=== PATIENT | female | born 1965 | race Caucasian/White ===

== ENCOUNTER → 2017-07-14 | Outpatient (CLI) | payer OTHER ==
[2017-07-14 08:48] LABS: ALT 41 U/L (9-52); AST 40 U/L (14-36); Cholesterol 230 mg/dL (<200); HDL Cholesterol 56 mg/dL (40-60); LDL Cholesterol,Calculated 123 mg/dL (0-99); Triglycerides 256 mg/dL (<150)
== END | disposition home or self-care (01) ==
LOC: LABWHC1 07:45
PROVIDERS: ATTEND Internal Medicine Cardiovascular Disease
DX: E78.2 Mixed hyperlipidemia (principal)
CPT/HCPCS: 36415; 80061; 84450; 84460

== ENCOUNTER → 2018-03-20 | Outpatient (CLI) | payer OTHER ==
--- NOTE | 2018-03-20 16:19 | MR ---
EXAMINATION TYPE: MR knee RT wo con DATE OF EXAM: 03/20/2018 COMPARISON: None HISTORY: Pain in right knee TECHNIQUE: Multiplanar, multisequence imaging of the right knee is performed without IV contrast. FINDINGS: MEDIAL MENISCUS: There is increased signal within the posterior horn medial meniscus. This may commun icate with the articular surface. Horizontal tear posterior horn considered. This may be complex with a oblique component in the anterior portion. The anterior horn medial meniscus appears intact. The m eniscus may be somewhat laterally displaced bulging out of the joint space. LATERAL MENISCUS: Anterior and posterior horns are intact without tear. CRUCIATE LIGAMENTS: Anterior cruciate ligament is not identified. Chronic tear is likely present. Pos terior cruciate ligament is. COLLATERAL LIGAMENTS: The medial collateral ligament and lateral collateral ligament complex are inta ct and unremarkable. EXTENSOR MECHANISM: Visualized quadriceps and patellar tendons are intact. EFFUSION: No significant suprapatellar joint effusion. POPLITEAL CYST: There is a 2.1 x 2.3 cm cyst posterior to the medial femoral condyle. TRICOMPARTMENT SPACES: There is narrowing of the medial lateral compartment joint spaces. Articular c artilage may serve these locations. There is loss of the articular cartilage from the posterior stewart la with some subchondral cyst formation. CARTILAGE: There is loss of the cartilage from the posterior patella. There is thinning of the cartil age at the anterior femur. There is mild thinning of the lateral compartment articular cartilage. The medial compartment articular cartilage appears intact. BONE MARROW SIGNAL: No focal abnormal marrow signal is appreciated. OTHER: No additional significant abnormality is appreciated. IMPRESSION: 1. Complex tear posterior horn medial meniscus with horizontal and the components. 2. Chronic tear of the anterior cruciate ligament. 3. Complex popliteal cyst posterior to the medial femoral condyle. 4. Degenerative change the articular cartilage discussed above. This is greatest along the posterior patella.
== END ==
LOC: RADMRIMAIN 10:59
PROVIDERS: ATTEND Orthopaedic Surgery
DX: S83.241A Other tear of medial meniscus, current injury, right knee, initial encounter (principal); S83.511A Sprain of anterior cruciate ligament of right knee, initial encounter; M71.21 Synovial cyst of popliteal space [Baker], right knee; M17.11 Unilateral primary osteoarthritis, right knee

== ENCOUNTER → 2018-03-28 | Outpatient (CLI) | payer OTHER ==
[2018-03-28 10:27] LABS: Basophils % (A) 1 %; Eosinophils # (A) 0.1 k/uL (0-0.7); Eosinophils % (A) 2 %; HCT 40.9 % (34.0-46.0); HGB 13.6 gm/dL (11.4-16.0); Lymphocytes # (A) 2.3 k/uL (1.0-4.8); Lymphocytes % (A) 30 %; MCH 30.2 pg (25.0-35.0); MCHC 33.2 g/dL (31.0-37.0); MCV 90.8 fL (80.0-100.0); Mean Platelet Volume 6.7; Monocytes # (A) 0.6 k/uL (0-1.0); Monocytes % (A) 8 %; Neutrophils # (A) 4.7 k/uL (1.3-7.7); Neutrophils % (A) 59 %; Platelet Count 378 k/uL (150-450); RBC 4.51 m/uL (3.80-5.40); RDW 13.7 % (11.5-15.5); WBC 7.9 k/uL (3.8-10.6)
[2018-03-28 10:46] LABS: Potassium 4.1 mmol/L (3.5-5.1)
== END | disposition home or self-care (01) ==
LOC: LABPAT 09:43
PROVIDERS: ATTEND Orthopaedic Surgery
DX: Z01.812 Encounter for preprocedural laboratory examination (principal); M23.91 Unspecified internal derangement of right knee
CPT/HCPCS: 36415; 80051; 85025

== ENCOUNTER → 2018-04-06 | Day surgery (SDC) | payer OTHER ==
[2018-04-03 15:56] VITALS: BMI 42.7
--- NOTE | 2018-04-05 10:42 | HP ---
HISTORY AND PHYSICAL CHIEF COMPLAINT: Right knee pain. 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 She notes intermittent giving way and locking. She has medial pain with prolonged weightbearing activities. She has tried medications and injection with only partial temporary relief. She had previous surgery 27 years ago. PAST MEDICAL HISTORY: Negative. PAST SURGICAL HISTORY: Significant for tubal ligation, section, hysterectomy, and previous right knee surgery. CURRENT MEDICATIONS: 1. Nelsy. 2. Aspirin. She has allergies to AVELOX. FAMILY HISTORY: Significant for cancer, thrombocytopenia, and Crohn's. SOCIAL HISTORY: Negative for current tobacco or alcohol use. REVIEW OF SYSTEMS: A 16-point review of systems otherwise reviewed and is noncontributory. PHYSICAL EXAMINATION: On examination, the patient is approximately 5 foot 2, 230 pounds of endomorphic habitus. HEENT exam is nonfocal. Neck is supple. She has painless passive motion of the right hip. Straight leg raise is negative. Active motion right knee -6 to 120 degrees of flexion. She is tender about the medial and lateral joint line. She has mild effusion. Collaterals are stable, Yeimi is 1+, Luis Eduardo's elicits medial pain. Her distal neurovascular appears intact in the right lower extremity. MRI report right knee 03/20/2018 shows a posterior medial meniscal tear along with a chronic ACL tear and tricompartmental degenerative changes. IMPRESSION: 1. Right knee internal derangement with symptomatic medial meniscal tear. 2. Right knee chronic ACL rupture. 3. Increased body mass index. 4. Right knee tricompartmental osteoarthrosis. RECOMMENDATIONS: I talked to the patient at length regarding her condition and treatment options. At this point, she is having persistent pain and mechanical symptoms despite conservative measures. After a thorough discussion, she opts to proceed with surgery. We will plan to proceed with arthroscopic evaluation with possible partial medial meniscectomy. Risks and benefits were discussed at length in layman's terms. We will likely perform that as an outpatient procedure. MMODL / IJN: [id number] /
[~2018-04-06] MED LIST: DEXAMETHASONE SOD PHOSPHATE 10 MG/ML 1 ML VIAL IV ONE; EPINEPHrine (PF) 1 ML in SODIUM CHLORIDE 0.9% IRRIGATIO 3,000 ML IRRIGATION ONE; GLYCOPYRROLATE 0.2 MG/ML 2 ML VIAL ONE; HYDROcodone/APAP 5-325MG 1 EACH TAB PO ONE; KETOROLAC 30 MG/ML 1 ML VIAL ONE; LACTATED RINGERS 1,000 ML IV SCH; LIDOCAINE 1% 20 ML VIAL (10MG/ML) FOR IV START INTRADERMA PRN; LIDOCAINE 1% 20 ML VIAL (10MG/ML) FOR IV START SQ ONE; LIDOCAINE 1% INJ 10MG/ML (20 ML MDV) ONE; MIDAZOLAM 2 MG/2 ML VIAL IV PRN; MIDAZOLAM 2 MG/2 ML VIAL ONE; ONDANSETRON 4 MG/2 ML VIAL IVP ONE; PROPOFOL 10 MG/ML 20 ML VIAL IV ONE; SUCCINYLCHOLINE CHLORIDE 100 MG/5 ML SYR IV ONE; ceFAZolin IN SWFI 2 GM/20 ML SYRINGE IVP ONE; ePHEDrine SULFATE/0.9% NACL/PF 50 MG/5 ML SYRINGE IV ONE; fentaNYL (PF) 50 MCG/ML 2 ML AMP ONE
--- NOTE | 2018-04-06 10:30 | P.OP ---
Date of Procedure: 04/06/18 Preoperative Diagnosis: Right knee internal derangement with/chronic ACL rupture Postoperative Diagnosis: Same in addition to a complex posterior medial meniscal tear/grade 3 chondral injury distal medial femoral condyle medial patella facet/large patellofemoral plica Procedure(s) Performed: Right knee arthroscopic partial medial meniscectomy/medial femoral condyle/ patellar chondroplasty/plica resection/ACL debridement Anesthesia: CHERIEA Surgeon: Kaden Cummins Estimated Blood Loss (ml): 10 Pathology: none sent Condition: stable Disposition: PACU Indications for Procedure: The patient's a 52-year-old female who presents with progressive right knee pain and mechanical symptoms despite conservative measures. A discussion of the risks and benefits of operative intervention versus continued conservative measures was made with patient. She opted to proceed. Operative risks to include infection, neurovascular injury, development of blood clots, possible incomplete resolution of symptoms, possible worsening symptoms and need for subsequent procedures was discussed. Informed consent was obtained. Operative Findings: As below Description of Procedure: The patient was brought to the operating room, and after induction of general anesthesia examined the right knee. Collaterals were stable, Yeimi was positive, and posterior drawer was negative. The right lower extremity was prepped and draped in a normal fashion. A superior lateral portal was made through a 3 mm skin incision superior and lateral to the patella. This was used for outflow. A lateral portal was made through a 5 mm vertical skin incision lateral to the patella tendon above the joint line. Diagnostic arthroscopy was performed. On inspection of the medial compartment, a complex oblique tear involving the posterior horn of the medial meniscus was noted in the white-red junction.. This was debrided back to stable base with straight baskets and a motorized shaver. A grade 3 chondral defect was noted involving the distal medial portion of the medial femoral condyle the loose chondral fragment. This was debrided back to stable base with a motorized shaver. Grade 2-3 chondral changes were noted diffusely in the medial compartment. On inspection of the notch, the anterior cruciate ligament appeared to be ruptured and impinging on the lateral compartment. This was debrided with a motorized shaver. The posterior cruciate ligament appeared to be intact. On inspection of the lateral compartment, mild degenerative changes were noted diffusely. On inspection of the patellofemoral articulation grade 3 chondral changes were noted involving the medial patella facet was a loose chondral fragment. This was debrided back to stable base with a motorized shaver. There appeared to be a large medial patellofemoral plica that impinged on the medial femoral condyle throughout the arc of motion. This was debrided with motorized shaver. The gutters were clear debris. The knee was then thoroughly irrigated. The portals were closed with Steri-Strips. A sterile dressing was applied in addition to a compression stocking. The patient was awoken from general anesthesia and transferred to recovery room in good condition. Blood loss was estimated at 10 mL. No complications were incurred.
[2018-04-06 10:43] VITALS: TEMP 98.5
[2018-04-06] MEDS: HYDROmorphone 0.5 MG/0.5 ML SYRINGE IVP PRN ×2 (10:44→11:02)
[2018-04-06 11:02] VITALS: RESP 16
[2018-04-06 11:17] VITALS: BP 126/87; PULSE 92
== END | disposition home or self-care (01) ==
LOC: OR 07:36
PROVIDERS: ATTEND Orthopaedic Surgery
DX: S83.231A Complex tear of medial meniscus, current injury, right knee, initial encounter (principal); X58.XXXA Exposure to other specified factors, initial encounter; M67.51 Plica syndrome, right knee; M17.11 Unilateral primary osteoarthritis, right knee; M23.8X1 Other internal derangements of right knee; E66.01 Morbid (severe) obesity due to excess calories; Z68.41 Body mass index [BMI] 40.0-44.9, adult; Z79.82 Long term (current) use of aspirin; Z79.899 Other long term (current) drug therapy; Z88.1 Allergy status to other antibiotic agents; Z98.51 Tubal ligation status; Z90.710 Acquired absence of both cervix and uterus
CPT/HCPCS: 29881; J2250; J1100; J2405; J0171; J2001; J3010; J1885; J0330; J2704; J1170; J0690

== ENCOUNTER → 2020-07-23 | Outpatient (CLI) | payer OTHER, BC ==
--- NOTE | 2020-07-29 11:12 | MM ---
Reason for exam: screening (asymptomatic). Last mammogram was performed 5 years and 7 months ago. History: Patient is postmenopausal. Physical Findings: A clinical breast exam by your physician is recommended on an annual basis and results should be correlated with mammographic findings. MG 3D Screening Mammo W/Cad Bilateral CC, MLO, and XCCL view(s) were taken. Prior study comparison: January 06, 2015, bilateral MG screening mammo w CAD. There are scattered fibroglandular densities. There is chronic nodularity in the left breast. Multiple benign oil cyst calcifications. No significant changes when compared with prior studies. ASSESSMENT: Negative, BI-RAD 1 RECOMMENDATION: Routine screening mammogram of both breasts in 1 year.
== END | disposition home or self-care (01) ==
LOC: RADMAMWWP 07:48
PROVIDERS: ATTEND Family Medicine
DX: Z12.31 Encounter for screening mammogram for malignant neoplasm of breast (principal); Z78.0 Asymptomatic menopausal state
CPT/HCPCS: 77063; 77067

== ENCOUNTER → 2021-02-03 | Outpatient (CLI) | payer OTHER ==
--- NOTE | 2021-02-03 19:40 | US ---
EXAMINATION TYPE: US thyroid st tissue head/neck DATE OF EXAM: 02/03/2021 COMPARISON: NONE CLINICAL HISTORY: 55-year-old female R59.9 ENLARGED LYMPH NODES. TECHNIQUE: Multiple sonographic images of the thyroid gland are obtained. GLAND SIZE: Right Lobe: 5.9 x 1.9 x 2.7 cm Overall Parenchyma: heterogenous Left Lobe: 7.2 x 2.3 x 2.7 cm Overall Parenchyma: heterogeneous Isthmus Thickness: 0.8 cm NODULES RIGHT: # of nodules measured on right: 0 LEFT: # of nodules measured on left: 0 ISTHMUS: # of nodules measured in the isthmus: 0 Can Piler notes: Enlarged heterogeneous thyroid. Bilateral neck scanned, no evidence of lymphadenopathy. Scanned back of patients neck area of pain: appears wnl IMPRESSION: 1. Thyromegaly especially the left lobe which measures up to 7.2 cm. Diffuse glandular heterogeneity. Correlate for diffuse thyroiditis or goiter. 2. No discrete nodules. 3. Targeted scanning along the left posterior neck corresponding to the site of pain shows no discret e sonographic abnormality.
== END | disposition home or self-care (01) ==
LOC: RADUSWWP 15:23
PROVIDERS: ATTEND Family Medicine
DX: E04.9 Nontoxic goiter, unspecified (principal)
CPT/HCPCS: 76536

== ENCOUNTER → 2021-05-13 | Outpatient (CLI) | payer OTHER ==
--- NOTE | 2021-05-13 13:08 | US ---
EXAMINATION TYPE: US abdomen complete DATE OF EXAM: 05/13/2021 COMPARISON: None CLINICAL HISTORY: 55-year-old female R10.12 LEFT UPPER QUADRANT PAIN. TECHNIQUE: Multiple sonographic images of the abdomen are obtained. FINDINGS: EXAM MEASUREMENTS: Liver Length: 18.7 cm Gallbladder Wall: 0.22 cm CBD: 0.54 cm Spleen: 9.1 cm Right Kidney: 12.5 x 6.4 x 5.0 cm Left Kidney: 11.9 x 4.4 x 5.0 cm Business Communications Instructor notes: Limited due to gas. Pancreas: Appears hyperechoic, limited. Liver: Mildly enlarged with increased echogenicity. Mildly complex probable cyst seen within the left lobe: 1.1 x 1.4 x 1.2 cm. Mildly complex probable cyst seen within the right lobe: 3.0 x 3.2 x 2.4 cm. Gallbladder: Appears anechoic, fold noted within the neck. Evidence for sonographic Doan's sign: No CBD: Upper limits of normal Spleen: Appears wnl Right Kidney: No hydronephrosis or masses seen Left Kidney: Some fullness of the left renal collecting system. Upper IVC: Appears wnl Abd Aorta: Appears wnl IMPRESSION: 1. Mild hepatomegaly (18.7 cm) with mild to moderate hepatic steatosis. A couple lesions measuring 3. 2 and 1.4 cm, likely mildly complex cysts that can be reassessed in 3-6 months. 2. No gallstones or biliary ductal dilatation. 3. Some fullness of the left renal collecting system may be transient. If there is left-sided renal c olic, hematuria, or concern for early obstructive uropathy, further contrast CT evaluation can be con sidered.
== END | disposition home or self-care (01) ==
LOC: RADUSWWP 10:11
PROVIDERS: ATTEND Family Medicine
DX: R16.0 Hepatomegaly, not elsewhere classified (principal); K76.0 Fatty (change of) liver, not elsewhere classified; K76.89 Other specified diseases of liver
CPT/HCPCS: 76700

== ENCOUNTER 2021-06-20 07:36 | Emergency (ER) | payer OTHER ==
[2021-06-20] MEDS ORDERED: KETOROLAC 15 MG/ML 1 ML VIAL IVP STA (08:34)
--- NOTE | 2021-06-20 08:37 | ED ---
General Adult HPI - General Chief complaint: Extremity Injury, Upper Stated complaint: Shoulder pain Time Seen by Provider: 06/20/21 08:25 Source: patient, RN notes reviewed, old records reviewed Limitations: no limitations - History of Present Illness Initial comments: Patient is a 55-year-old female with past medical history remarkable for ALLERGIES, presents for Covid symptoms for the 8 days. Was vaccinated. Did not receive a monoclonal antibodies.Presents primarily over concern for left shoulder pain after a fall last week. Patient states she believes she had a syncopal episode while she was in the shower on , which is 3 days ago. Is currently Monday. Is having continued pain over the posterior aspect of her left shoulder. His normal range of motion. Pain is worse with movement. No sensory deficits or weakness. Denies any chest pain or shortness breath, abdominal pain, nausea, vomiting. Denies any lower extremity edema. His no history of blood clots. States she believes her Covid is improving. Denies any difficulty breathing. He is uncertain concern for injury to her left shoulder as well as the syncopal episode. No cardiac history.Not on blood thinners. Denies any further episodes of syncope or symptoms related to presyncope. - Related Data Previous Rx's Medication Instructions Recorded Hydrocodone/Acetaminophen [[place] 1 each PO Q6HR PRN #21 tab 04/06/18 5-325] Lidocaine 5% Patch [Lidoderm 5% 1 patch TOPICAL DAILY PRN 7 Days 06/20/21 Patch] #7 patch Methocarbamol [Robaxin-750] 750 mg PO BID PRN 7 Days #14 tablet 06/20/21 Allergies Allergy/AdvReac Type Severity Reaction Status Date / Time No Known Allergies Allergy Verified 06/20/21 07:46 Review of Systems ROS Statement: Those systems with pertinent positive or pertinent negative responses have been documented in the HPI. Review of Systems: CONST: Denies fever EYES: Denies blurry vision ENT: Denies nasal congestion C/V: Denies Chest pain RESP: Denies shortness of breath GI: Denies abdominal pain : Denies dysuria SKIN: Denies rash. MSK: Endorses left shoulder pain NEURO: Denies headache ROS Other: All systems not noted in ROS Statement are negative. Past Medical History Additional Past Medical History / Comment(s): environmental allergies History of Any Multi-Drug Resistant Organisms: None Reported Past Surgical History: Section, Hysterectomy, Orthopedic Surgery, Tubal Ligation Additional Past Surgical History / Comment(s): SEPTOPLASTY. RT KNEE SCOPE Past Anesthesia/Blood Transfusion Reactions: Previous Problems w/ Anesthesia Additional Past Anesthesia/Blood Transfusion Reaction / Comment(s): WOKE UP TWICE DURING HYSTERECTOMY Past Psychological History: No Psychological Hx Reported Smoking Status: Never smoker Past Alcohol Use History: Rare Past Drug Use History: None Reported - Past Family History Father Family Medical History: Cancer General Exam - General Exam Comments Initial Comments: General: Appears in no acute distress. HEAD: Normal with no signs of head trauma. EYES: PERRLA, EOMI, conjunctiva normal, no discharge. ENT: Hearing grossly intact, normal oropharynx. RESPIRATORY: Clear breath sounds bilaterally. No wheezes, rales, or rhonchi. C/V: Regular rate and rhythm. S1 and S2 auscultated, no edema, peripheral pulses 2+ and intact throughout ABD: Abd is soft, nontender, nondistended EXT: Tenderness to palpation of the posterior aspect of the left shoulder with no obvious bony abnormality. No obvious injury. Full range of motion. SKIN: No rashes or lesions observed on exposed skin. NEURO: Alert and oriented 4. No focal sensory strength deficits. NIH is 0. GCS is 15. Limitations: no limitations Course Vital Signs 06/20/21 06/20/21 06/20/21 07:43 09:00 10:19 Temperature 98.1 F 98.4 F Pulse Rate 96 79 79 Respiratory 20 18 18 Rate Blood Pressure 163/105 147/101 137/86 O2 Sat by Pulse 97 98 97 Oximetry Medical Decision Making - Medical Decision Making This on the patient's presentation and physical exam, she has an active Covid infection but is outside window for monoclonal antibodies. She appears to be having left shoulder mostly skeletal pain after a question of syncopal episode last week. As she is actively Covid positive, she is at increased risk for blood clots. I did recommend we obtain a cardiac workup in addition to d-dimer further syncope. She was in agreement this plan. We'll also obtain x-rays of left shoulder throughout bony traumatic injury. She'll be given analgesia. Patient was in agreement this plan. EKG showed no signs of acute ischemia. Laboratory studies revealed a undetectable troponin. Remainder the labs are unremarkable. Chest x-ray showed no acute cardiopulmonary process. Shoulder x-ray showed no acute traumatic injury. There is arthritis at the AC joint. Reevaluation come patient's pain is improved. I discussed her negative workup. I believe it is safer to be discharged home with close follow-up. She was in agreement this plan. Vital signs of remained within normal limits stable throughout her stay. No further symptoms of syncopal episodes since . I will provide the patient with a prescription for lidocaine patch, Robaxin. I instructed the patient to follow up with their PCP in the next 3 days. I explained that the patient should return to the emergency department if they experience any worsening symptoms. Strict return precautions were discussed with the patient. The patient expressed understanding of these instructions. I answered all questions that the patient had. The patient was discharged home in good condition with their prescriptions and follow up information. - Lab Data Result diagrams: 06/20/21 08:50 06/20/21 08:50 Lab Results 06/20/21 06/20/21 06/20/21 Range/Units 08:50 08:50 08:50 WBC 6.3 (3.8-10.6) k/uL RBC 5.10 (3.80-5.40) m/uL Hgb 12.5 (11.4-16.0) gm/dL Hct 40.2 (34.0-46.0) % MCV 78.9 L (80.0-100.0) fL MCH 24.5 L (25.0-35.0) pg MCHC 31.1 (31.0-37.0) g/dL RDW 16.9 H (11.5-15.5) % Plt Count 469 H (150-450) k/uL MPV 7.0 Neutrophils % 59 % Lymphocytes % 29 % Monocytes % 7 % Eosinophils % 1 % Basophils % 0 % Neutrophils # 3.8 (1.3-7.7) k/uL Lymphocytes # 1.9 (1.0-4.8) k/uL Monocytes # 0.4 (0-1.0) k/uL Eosinophils # 0.1 (0-0.7) k/uL Basophils # 0.0 (0-0.2) k/uL Anisocytosis Slight Microcytosis Slight PT 10.5 (9.0-12.0) sec INR 1.0 (<1.2) APTT 24.2 (22.0-30.0) sec D-Dimer 0.26 (<0.60) mg/L FEU Sodium 138 (137-145) mmol/L Potassium 4.1 (3.5-5.1) mmol/L Chloride 106 (98-107) mmol/L Carbon Dioxide 22 (22-30) mmol/L Anion Gap 10 mmol/L BUN 14 (7-17) mg/dL Creatinine 0.67 (0.52-1.04) mg/dL Est GFR (CKD-EPI)AfAm >90 (>60 ml/min/1.73 sqM) Est GFR (CKD-EPI)NonAf >90 (>60 ml/min/1.73 sqM) Glucose 122 H (74-99) mg/dL Calcium 9.5 (8.4-10.2) mg/dL Magnesium 1.8 (1.6-2.3) mg/dL Total Bilirubin 0.6 (0.2-1.3) mg/dL AST 32 (14-36) U/L ALT 25 (4-34) U/L Alkaline Phosphatase 87 (38-126) U/L Troponin I (0.000-0.034) ng/mL Total Protein 7.9 (6.3-8.2) g/dL Albumin 4.5 (3.5-5.0) g/dL 06/20/21 Range/Units 08:50 WBC (3.8-10.6) k/uL RBC (3.80-5.40) m/uL Hgb (11.4-16.0) gm/dL Hct (34.0-46.0) % MCV (80.0-100.0) fL MCH (25.0-35.0) pg MCHC (31.0-37.0) g/dL RDW (11.5-15.5) % Plt Count (150-450) k/uL MPV Neutrophils % % Lymphocytes % % Monocytes % % Eosinophils % % Basophils % % Neutrophils # (1.3-7.7) k/uL Lymphocytes # (1.0-4.8) k/uL Monocytes # (0-1.0) k/uL Eosinophils # (0-0.7) k/uL Basophils # (0-0.2) k/uL Anisocytosis Microcytosis PT (9.0-12.0) sec INR (<1.2) APTT (22.0-30.0) sec D-Dimer (<0.60) mg/L FEU Sodium (137-145) mmol/L Potassium (3.5-5.1) mmol/L Chloride (98-107) mmol/L Carbon Dioxide (22-30) mmol/L Anion Gap mmol/L BUN (7-17) mg/dL Creatinine (0.52-1.04) mg/dL Est GFR (CKD-EPI)AfAm (>60 ml/min/1.73 sqM) Est GFR (CKD-EPI)NonAf (>60 ml/min/1.73 sqM) Glucose (74-99) mg/dL Calcium (8.4-10.2) mg/dL Magnesium (1.6-2.3) mg/dL Total Bilirubin (0.2-1.3) mg/dL AST (14-36) U/L ALT (4-34) U/L Alkaline Phosphatase (38-126) U/L Troponin I <0.012 (0.000-0.034) ng/mL Total Protein (6.3-8.2) g/dL Albumin (3.5-5.0) g/dL - EKG Data -: EKG Interpreted by Me EKG Comments: 12-lead Electrocardiogram Interpretation Note EKG was reviewed and interpreted by myself. 12-lead ECG performed at 0841 is interpreted by me as revealing normal sinus rhythm at a rate of 77 beats per minute. Candor is normal. VT interval is 201 ms, QRS duration is 79 ms, QTc is 394 ms.. There were no ST or T wave abnormalities to suggest myocardial ischemia or injury. R wave progression across the precordium was satisfactory. By my interpretation this EKG is non-diagnostic for acute ischemia. Disposition Clinical Impression: Fall, Shoulder pain, Syncope Disposition: HOME SELF-CARE Condition: Good Instructions (If sedation given, give patient instructions): Syncope (ED), Shoulder Pain (ED) Prescriptions: Lidocaine 5% Patch [Lidoderm 5% Patch] 1 patch TOPICAL DAILY PRN 7 Days #7 patch PRN Reason: Pain Methocarbamol [Robaxin-750] 750 mg PO BID PRN 7 Days #14 tablet PRN Reason: Pain Is patient prescribed a controlled substance at d/c from ED?: No Referrals: Ray Mac III, MD [Primary Care Provider] - 1-2 days Time of Disposition: 09:50
[2021-06-20 09:00] VITALS: PULSE 79; RESP 18
[2021-06-20] MEDS ORDERED: LIDOCAINE 5% PATCH TOPICAL SCH (09:00)
[2021-06-20 09:14] LABS: Partial Thromboplastin Time 24.2 sec (22.0-30.0); Prothrombin Time 10.5 sec (9.0-12.0)
--- NOTE | 2021-06-20 09:15 | XR ---
EXAMINATION TYPE: XR chest 2V DATE OF EXAM: 06/20/2021 COMPARISON: NONE HISTORY: Syncope TECHNIQUE: Frontal and lateral views of the chest are obtained. FINDINGS: There is no focal air space opacity, pleural effusion, or pneumothorax seen. The cardiac silhouette size is within normal limits. The osseous structures are intact. There is a moderate to large hiatal hernia IMPRESSION: No acute cardiopulmonary process. Hiatal hernia
--- NOTE | 2021-06-20 09:18 | XR ---
Left shoulder. HISTORY: Pain following trauma. COMPARISON: None. TECHNIQUE: 3 views left shoulder were obtained. There is no fracture, dislocation or focal intraosseous abnormality. There is mild degenerative quinones e of the acromioclavicular joint. Soft tissues are normal without calcification or radiopaque foreign body.. IMPRESSION: 1. No acute trauma. 2. Mild osteoarthritic change at the AC joint.
[2021-06-20 09:19] LABS: ALT 25 U/L (4-34); AST 32 U/L (14-36); African American GFR (CKD) >90 (>60 ml/min/1.73 sqM); Albumin 4.5 g/dL (3.5-5.0); Alkaline Phosphatase 87 U/L (38-126); Anion Gap 10 mmol/L; Anisocytosis Slight; Basophils % (A) 0 %; Blood Urea Nitrogen 14 mg/dL (7-17); Calcium 9.5 mg/dL (8.4-10.2); Carbon Dioxide 22 mmol/L (22-30); Chloride 106 mmol/L (98-107); Eosinophils # (A) 0.1 k/uL (0-0.7); Eosinophils % (A) 1 %; Glucose 122 mg/dL (74-99); HCT 40.2 % (34.0-46.0); HGB 12.5 gm/dL (11.4-16.0); Lymphocytes # (A) 1.9 k/uL (1.0-4.8); Lymphocytes % (A) 29 %; MCH 24.5 pg (25.0-35.0); MCHC 31.1 g/dL (31.0-37.0); MCV 78.9 fL (80.0-100.0); Magnesium 1.8 mg/dL (1.6-2.3); Microcytosis Slight; Monocytes # (A) 0.4 k/uL (0-1.0); Monocytes % (A) 7 %; Neutrophils # (A) 3.8 k/uL (1.3-7.7); Neutrophils % (A) 59 %; Non-African American GFR(CKD) >90 (>60 ml/min/1.73 sqM); Platelet Count 469 k/uL (150-450); Potassium 4.1 mmol/L (3.5-5.1); RDW 16.9 % (11.5-15.5); Sodium 138 mmol/L (137-145); Total Bilirubin 0.6 mg/dL (0.2-1.3); Total Protein 7.9 g/dL (6.3-8.2); WBC 6.3 k/uL (3.8-10.6)
[2021-06-20 10:21] VITALS: BP 137/86; TEMP 98.4
== END 2021-06-20 10:20 | disposition home or self-care (01) ==
LOC: EC 07:36
DX: R55 Syncope and collapse (principal); M25.512 Pain in left shoulder; U07.1 COVID-19; W18.39XA Other fall on same level, initial encounter
CPT/HCPCS: 36415; 93005; 85379; 80053; 83735; 84484; 85025; 85610; 85730; 73030; 71046; 99284; 96374; J1885

== ENCOUNTER → 2021-06-28 | Outpatient (CLI) | payer OTHER ==
--- NOTE | 2021-06-28 17:28 | CT ---
EXAMINATION TYPE: CT abdomen pelvis wo/w con DATE OF EXAM: 06/28/2021 COMPARISON: Ultrasound 05/13/2021 HISTORY: 55-year-old female left-sided abdomen pain, K92.1, R10.12. Pt states she had US, result was renal congestion TECHNIQUE: Contiguous axial scanning of the abdomen and pelvis before and after administration of 100 ml Isovue 300 IV contrast. Delayed images through the kidneys and coronal/sagittal reconstructions performed. CT DLP: 3005.6 mGycm Automated exposure control for dose reduction was used. FINDINGS: Heart normal size without pericardial effusion. Minimal emphysematous change in the lower lungs witho ut pleural effusion. There is a large hiatal hernia involving approximately half of the stomach in the lower chest. Liver mildly enlarged 18.5 cm. Low attenuation suggest mild fatty infiltration. There are 2 hypodense lesions, larger in the periphery of the right liver lobe is slightly heterogeneous measuring 1.7 cm and smaller within the posterior left liver lobe measuring 9 mm, likely a cyst. No biliary ductal dilatation. Portal venous system is patent. Gallbladder, adrenal glands, kidneys, spleen, pancreas within normal limits. No renal calculi or hydronephrosis is seen. The previous left-sided pelvocaliectasis seen on ultrasou nd has resolved. No dilated small bowel, free fluid, or free air. No mesenteric or retroperitoneal lymphadenopathy. No significant stool burden. Oral contrast progressed to the distal sigmoid. There is sigmoid diverti culosis without pericolonic inflammatory change. Bladder urine distended. Numerous pelvic phleboliths. Uterus surgically absent. Both ovaries are visu alized. No abnormal fluid collection in the pelvis or pelvic lymphadenopathy. Moderate multilevel degenerative disc disease throughout the thoracic spine. Hypertrophic facet arthr opathy. Grade 1 anterolisthesis L4-L5 and grade 1 retrolisthesis L2-L3. IMPRESSION: 1. LARGE HIATAL HERNIA WITH APPROXIMATELY HALF OF THE STOMACH LOCATED IN THE LOWER CHEST. 2. MILD HEPATOMEGALY AT 18.5 CM. THERE MAY BE MILD FATTY INFILTRATION OF THE LIVER. 2 HYPODENSE LESIO NS MEASURING 1.7 AND 0.9 CM; THE LARGER ONE IN THE RIGHT LOBE COULD BE MILDLY COMPLICATED WITH DEBRIS . REASSESS AT THE 6 MONTH FOLLOW-UP ULTRASOUND. 3. THE PREVIOUS LEFT-SIDED PELVICALIECTASIS/MILD HYDRONEPHROSIS SEEN ON THE 05/13/2021 ULTRASOUND HAS RESOLVED. NO RENAL CALCULI. 4. SIGMOID DIVERTICULOSIS WITHOUT ACUTE DIVERTICULITIS. 5. COPD WITH MILD EMPHYSEMA IN THE VISUALIZED LOWER LUNGS.
== END | disposition home or self-care (01) ==
LOC: RADCTMAIN 12:16
PROVIDERS: ATTEND Family Medicine
DX: K44.9 Diaphragmatic hernia without obstruction or gangrene (principal); K57.30 Diverticulosis of large intestine without perforation or abscess without bleeding; R16.0 Hepatomegaly, not elsewhere classified; J43.9 Emphysema, unspecified
CPT/HCPCS: 74178; Q9967

== ENCOUNTER → 2021-08-03 | Outpatient (CLI) | payer OTHER ==
--- NOTE | 2021-08-04 07:43 | MM ---
Reason for Exam: Screening (asymptomatic). Last screening mammogram was performed 12 month(s) ago. Patient History: Menarche at age 10. First Full-Term at age 27. Hysterectomy at age 44. Postmenopausal. Patient has history of breast feeding. Risk Values: Honey 5 year model risk: 1.4%. NCI Lifetime model risk: 8.7%. Prior Study Comparison: 03/30/2012 Bilateral Screening Mammogram, [facility]. 01/06/2015 Bilateral Screening Mammogram, [facility]. 07/23/2020 Bilateral Screening Mammogram, [facility]. Tissue Density: There are scattered fibroglandular densities. Findings: Analyzed By CAD. There is no suspicious group of microcalcifications or new suspicious mass in either breast. Stable scattered benign-appearing calcifications bilaterally. Overall Assessment: Benign, BI-RAD 2 Management: Screening Mammogram of both breasts in 1 year. A clinical breast exam by your physician is recommended on an annual basis and results should be correlated with mammographic findings. Electronically signed and approved by: Isaac Swift M.D. Radiologis
== END | disposition home or self-care (01) ==
LOC: RADMAMWWP 07:23
PROVIDERS: ATTEND Family Medicine
DX: Z12.39 Encounter for other screening for malignant neoplasm of breast (principal)
CPT/HCPCS: 77063; 77067

== ENCOUNTER → 2021-08-30 | Outpatient (CLI) | payer OTHER ==
--- NOTE | 2021-08-30 11:13 | FL ---
ESOPHOGRAM. HISTORY: Dysphagia Esophagram was performed per the air contrast technique. The patient swallowed barium and effervesce nt crystals without difficulty or delay. Esophageal peristalsis and motility appear to be within normal limits. There is no evidence for filling defect, mass or diverticulum. Moderately large fixed paraesophageal hiatal hernia noted. Subsequently single contrast cervical esophagram was performed which fails demonstrate evidence for a spiration penetration or mass. IMPRESSION: Moderately large fixed paraesophageal hiatal hernia noted.
== END | disposition home or self-care (01) ==
LOC: RADUSWWP 09:52
PROVIDERS: ATTEND Surgery Plastic and Reconstructive Surgery
DX: K44.9 Diaphragmatic hernia without obstruction or gangrene (principal)
CPT/HCPCS: 74220

== ENCOUNTER → 2021-09-01 | Outpatient (CLI) | payer OTHER ==
--- NOTE | 2021-09-01 09:32 | NM ---
EXAMINATION TYPE: NM hepatobiliary w EF DATE OF EXAM: 09/01/2021 COMPARISON: NONE HISTORY: Pain TECHNIQUE: After the intravenous administration of 4.2 mCi Tc 99m Mebrofenin hepatobiliary scintigrap hy is performed. Immediate images post injection. FINDINGS: There is satisfactory initial accumulation of tracer by the liver. The gallbladder is visualized wit hin 26 minutes. The small bowel activity is noted within 14 minutes. At one hour 8 ounces of oral e nsure plus is given to mimic CCK and gallbladder ejection fraction is calculated at 27 %. IMPRESSION: Diminished gallbladder ejection fraction of 27% may reflect chronic cholecystitis and/or biliary dyskinesia.
== END | disposition home or self-care (01) ==
LOC: RADNMMAIN 06:48
PROVIDERS: ATTEND Surgery Plastic and Reconstructive Surgery
DX: K76.89 Other specified diseases of liver (principal)
CPT/HCPCS: 78226; A9537

== ENCOUNTER 2021-09-13 18:58 | Emergency (ER) | payer OTHER, BC ==
[2021-09-13 19:25] VITALS: BP 148/90; PULSE 108; RESP 16; TEMP 98.2
[2021-09-13] MEDS ORDERED: diazePAM 5 MG TAB PO STA (23:07)
--- NOTE | 2021-09-13 23:10 | ED ---
General Adult HPI - General Chief complaint: Fall Stated complaint: fall, head injury Time Seen by Provider: 09/13/21 22:01 Source: patient, RN notes reviewed Mode of arrival: ambulatory Limitations: no limitations - History of Present Illness Initial comments: 55-year-old female presents to the emergency department for evaluation of injury to head and face status post a slip and fall on a wet floor in her basement around 6 PM. Patient states her scalp is tender to the touch and has noticeable swelling to the left face and eye. She does not take any blood thinning medications. No other injuries. Denies loss of consciousness, dizziness, blurry vision, neck pain, back pain, chest pain, difficulty breathing, abdominal pain, nausea, vomiting, diarrhea, or dysuria. - Related Data Home Medications Medication Instructions Recorded Confirmed Fexofenadine HCl [Nelsy Allergy] 180 mg PO DAILY 09/13/21 09/13/21 Levothyroxine Sodium [Synthroid] 25 mcg PO AC-BRKFST 09/13/21 09/13/21 Omeprazole Magnesium [PriLOSEC OTC] 20 mg PO DAILY 09/13/21 09/13/21 Allergies Allergy/AdvReac Type Severity Reaction Status Date / Time moxifloxacin [From Avelox] Allergy Rash/Hives Verified 09/13/21 23:14 on entire body Review of Systems ROS Statement: Those systems with pertinent positive or pertinent negative responses have been documented in the HPI. ROS Other: All systems not noted in ROS Statement are negative. Past Medical History Past Medical History: Thyroid Disorder Additional Past Medical History / Comment(s): environmental allergies History of Any Multi-Drug Resistant Organisms: None Reported Past Surgical History: Section, Hysterectomy, Orthopedic Surgery, Tubal Ligation Additional Past Surgical History / Comment(s): SEPTOPLASTY. RT KNEE SCOPE Past Anesthesia/Blood Transfusion Reactions: Previous Problems w/ Anesthesia Additional Past Anesthesia/Blood Transfusion Reaction / Comment(s): WOKE UP TWICE DURING HYSTERECTOMY Past Psychological History: No Psychological Hx Reported Smoking Status: Never smoker Past Alcohol Use History: Rare Past Drug Use History: None Reported - Past Family History Father Family Medical History: Cancer General Exam Limitations: no limitations (Developed, well-nourished female in no acute distress. Initial temperature 98.2, pulse 108, respirations 16, blood pressure 140/90, pulse ox 98% on room air.) General appearance: alert, in no apparent distress Head exam: Present: normocephalic, other (Hematoma with superficial abrasion left parietal region of the scalp) Eye exam: Present: normal appearance, PERRL, EOMI, periorbital swelling, periorbital tenderness (Left periorbital tenderness and swelling. Faint purplish discoloration of skin noted indicating developing contusion). Absent: scleral icterus, conjunctival injection, nystagmus Pupils: Present: normal accommodation Expanded Eyelids: Normal Inspection: Bilateral Pupils: Regular, Round: Bilateral Sclera/Conjunctival: Normal Inspection: Bilateral ENT exam: Present: normal exam, normal oropharynx, mucous membranes moist, TM's normal bilaterally, normal external ear exam Neck exam: Present: normal inspection, full ROM. Absent: tenderness, meningismus, lymphadenopathy Respiratory exam: Present: normal lung sounds bilaterally. Absent: respiratory distress, wheezes, rales, rhonchi, stridor Cardiovascular Exam: Present: regular rate, normal rhythm, normal heart sounds. Absent: systolic murmur, diastolic murmur, rubs, gallop, clicks GI/Abdominal exam: Present: soft, normal bowel sounds. Absent: distended, tenderness, guarding, rebound, rigid Extremities exam: Present: normal inspection, full ROM, normal capillary refill Back exam: Present: normal inspection, full ROM. Absent: paraspinal tenderness, vertebral tenderness Neurological exam: Present: alert, oriented X3, CN II-XII intact, normal gait Psychiatric exam: Present: normal affect, normal mood Skin exam: Present: warm, dry, intact. Absent: rash Course Vital Signs 09/13/21 19:22 Temperature 98.2 F Pulse Rate 108 H Respiratory 16 Rate Blood Pressure 148/90 O2 Sat by Pulse 98 Oximetry Medical Decision Making - Medical Decision Making This is a pleasant 55-year-old female with a past medical history of thyroid disease and previous concussion who reports to the emergency department for evaluation of injury to head and face. Patient states she slipped and fell on concrete striking the left side of her face and scalp on the ground. No loss of consciousness. Does not take any blood thinning medications. Upon exam, patient is awake and alert answering questions appropriately. She has no focal neurological deficits. There is developing contusion in the left periorbital area. EOMI. PERRL. CT of the brain and facial bones were negative for any acute findings. Patient was given Tylenol for discomfort per her request. Also given Valium prior to CT for anxiety. Patient updated on negative findings and is reassured. She will be discharged home to follow up with her PCP for a recheck in 24-48 hours. Strict return parameters were discussed in detail. Patient verbalizes understanding and agrees with this plan. Attending: Rajesh. - Radiology Data Radiology results: report reviewed, image reviewed CT of facial bones without contrast was obtained. Report was reviewed in its entirety. Impression per Dr. Nash as negative computed tomography scan of the facial bones. No evidence of orbital fracture. CT of the brain was obtained. Report was reviewed in its entirety. Impression per Dr. Nash is negative computed tomography scan of the brain. Disposition Clinical Impression: Contusion of face, Scalp hematoma Disposition: HOME SELF-CARE Condition: Stable Instructions (If sedation given, give patient instructions): Scalp Contusion in Adults (ED), Facial Contusion (ED) Additional Instructions: May take Tylenol if needed for discomfort. Apply ice for no more than 20 minutes. Follow-up with your PCP for a recheck by the end of the week if needed. Return to the emergency department with any new, worsening, or concerning symptoms. Is patient prescribed a controlled substance at d/c from ED?: No Referrals: Ray Mac III, MD [Primary Care Provider] - 1-2 days Time of Disposition: 00:44
--- NOTE | 2021-09-13 23:45 | CT ---
EXAMINATION TYPE: CT brain wo con DATE OF EXAM: 09/13/2021 COMPARISON: None HISTORY: SLIPPED & FELL ON WATER IN KITCHEN AT HOME TONIGHT. HEAD PAIN CT DLP: 990.8 mGycm Automated exposure control for dose reduction was used. Ventricles have normal size. There is no mass effect or midline shift. No sign of intracranial hemorr toni. Calvarium is intact. Skull base is intact. IMPRESSION: Negative CT scan of the brain.
--- NOTE | 2021-09-13 23:55 | CT ---
EXAMINATION TYPE: CT facial bones wo con DATE OF EXAM: 09/13/2021 COMPARISON: None HISTORY: SLIPPED & FELL ON WATER IN KITCHEN AT HOME TONIGHT. HEAD PAIN CT DLP: 990.8 mGycm Automated exposure control for dose reduction was used. Images obtained from the bottom of the maxilla to the top of the orbits with no contrast. The maxilla is intact. Zygomatic arches appear normal. Orbital margins are intact. There is no evidence of orbit al blowout fracture. There is fairly normal aeration of the paranasal sinuses. Nasal bone appears int act. IMPRESSION: Negative CT scan of the facial bones. No evidence of orbital fracture.
[2021-09-14] MEDS ORDERED: ACETAMINOPHEN TAB 325 MG TAB PO STA (00:42)
== END 2021-09-14 01:11 | disposition home or self-care (01) ==
LOC: EC 18:58
DX: S00.03XA Contusion of scalp, initial encounter (principal); S00.83XA Contusion of other part of head, initial encounter; E07.9 Disorder of thyroid, unspecified; Z79.899 Other long term (current) drug therapy; Z88.8 Allergy status to other drugs, medicaments and biological substances; W01.0XXA Fall on same level from slipping, tripping and stumbling without subsequent striking against object, initial encounter
CPT/HCPCS: 70450; 70486

== ENCOUNTER → 2021-09-23 | Day surgery (SDC) | payer OTHER, BC ==
[2021-09-20 15:44] VITALS: BMI 40.8
[~2021-09-23] MED LIST changes: +ACETAMINOPHEN TAB 500 MG TAB PO PRN; +BUPIVACAIN-EPI 0.25%-1:200,000 30 ML VIAL SQ ONE; -DEXAMETHASONE SOD PHOSPHATE 10 MG/ML 1 ML VIAL IV ONE; +DEXAMETHASONE SOD PHOSPHATE 4 MG/ML 1 ML VIAL IV ONE; -EPINEPHrine (PF) 1 ML in SODIUM CHLORIDE 0.9% IRRIGATIO 3,000 ML IRRIGATION ONE; +FAMOTIDINE 20 MG TAB PO PRN; +GABAPENTIN 300 MG CAP PO PRN; +HEPARIN SODIUM,PORCINE/PF 5,000 UNIT/0.5 ML SYRINGE SQ PRN; -HYDROcodone/APAP 5-325MG 1 EACH TAB PO ONE; +INDOCYANINE GREEN 25 MG VIAL IV ONE; +INDOCYANINE GREEN 25 MG VIAL IV STA; -KETOROLAC 30 MG/ML 1 ML VIAL ONE; +LIDOCAINE 1% (10MG/ML) FOR IV START INTRADERMA PRN; -LIDOCAINE 1% 20 ML VIAL (10MG/ML) FOR IV START INTRADERMA PRN; -LIDOCAINE 1% 20 ML VIAL (10MG/ML) FOR IV START SQ ONE; -LIDOCAINE 1% INJ 10MG/ML (20 ML MDV) ONE; +LIDOCAINE 2% INJ 20 MG/ML (2 ML VIAL) ONE; +MELOXICAM 7.5 MG TAB PO PRN; -MIDAZOLAM 2 MG/2 ML VIAL IV PRN; +NEOSTIGMINE 1 MG/ML 10 ML VIAL ONE; -ONDANSETRON 4 MG/2 ML VIAL IVP ONE; +ONDANSETRON 4 MG/2 ML VIAL IVP PRN; +ONDANSETRON 4 MG/2 ML VIAL ONE; +PHENYLEPHRINE-0.9% NACL SYG 1,000 MCG/10 ML SYRINGE ONE; +ROCURONIUM 10 MG/ML (5 ML VIAL) IV ONE; +SCOPOLAMINE 1 MG/72 HR PATCH TRANSDERM PRN; -SUCCINYLCHOLINE CHLORIDE 100 MG/5 ML SYR IV ONE; +SUCCINYLCHOLINE CHLORIDE 200 MG/10 ML VIAL IV ONE; -ceFAZolin IN SWFI 2 GM/20 ML SYRINGE IVP ONE; -ePHEDrine SULFATE/0.9% NACL/PF 50 MG/5 ML SYRINGE IV ONE
--- NOTE | 2021-09-23 07:23 | P.GSHP ---
History of Present Illness H&P Date: 09/23/21 CHIEF COMPLAINT: Cholecystitis HISTORY OF PRESENT ILLNESS: The patient is a 55-year-old female who presents with history of epigastric including right upper quadrant abdominal pain. She underwent diagnostic studies for her gallbladder. Separately her clinical picture was consistent with cholecystitis. Now she presents for surgical intervention. PAST MEDICAL HISTORY: Please see list PAST SURGICAL HISTORY: Please see list MEDICATIONS: Please see list ALLERGIES: Please see list SOCIAL HISTORY: Please see list FAMILY HISTORY: Please see list REVIEW OF ORGAN SYSTEMS: CONSTITUTIONAL: No reports of fevers or chills. HEENT: Denies any troubles with the vision or hearing. ENDOCRINE: No reports of hypothyroidism. No diabetes. RESPIRATORY: No recent pneumonias. CARDIOVASCULAR: Denies chest pain or palpitations GI: No blood in stools or constipation. MUSCULOSKELETAL: Has occasional joint pain including back pain. NEURO: No seizure disorders or headaches. No recent stroke. PSYCH: No depression or suicidal ideation. GENITOURINARY: No active blood in urine. No urinary hesitancy. HEMATOLOGIC: No personal or family history of DVTs or pulmonary emboli. SKIN: No skin cancer. PHYSICAL EXAM: VITAL SIGNS: Afebrile vital signs stable GENERAL: Well-developed pleasant in no acute distress. HEENT: No scleral icterus. Extraocular movements grossly intact. Moist buccal mucosa. NECK: Supple without lymphadenopathy. CHEST: Unlabored respirations. Equal bilateral excursions. CARDIOVASCULAR: Regular rate regular rhythm rhythm. Distal 2+ pulses. ABDOMEN: Soft, nondistended. Tender along the epigastrium and right upper quadrant. MUSCULOSKELETAL: No clubbing, cyanosis, or edema. NEURO: Cranial nerves II to XII within normal limits. No focal or lateralizing signs. PSYCH: Alert and oriented to person, place and time. SKIN: Well-perfused good skin turgor. ASSESSMENT: 1. Epigastric and right upper quadrant abdominal pain 2. Chronic cholecystitis 3. Symptomatic gallstones. PLAN: 1. Will need a robotic cholecystectomy possible open. Benefits and risks were described. 2. Heparin for DVT prophylaxis 5000 units. 3. Antibiotic prophylaxis. Past Medical History Past Medical History: Blood Disorder, GERD/Reflux, Thyroid Disorder Additional Past Medical History / Comment(s): Environmental allergies. Heart murmur. Enlarged liver. "Too many platelets". "Fall 09/13/21, hit head, side of face, had CT, everything ok". History of Any Multi-Drug Resistant Organisms: None Reported Past Surgical History: Section, Hysterectomy, Orthopedic Surgery, Tubal Ligation Additional Past Surgical History / Comment(s): SEPTOPLASTY, RIGHT KNEE SCOPE X2. Past Anesthesia/Blood Transfusion Reactions: Previous Problems w/ Anesthesia Additional Past Anesthesia/Blood Transfusion Reaction / Comment(s): WOKE UP TWICE DURING HYSTERECTOMY. Past Psychological History: No Psychological Hx Reported Smoking Status: Never smoker Past Alcohol Use History: Rare Past Drug Use History: None Reported - Past Family History Father Family Medical History: Cancer Medications and Allergies Home Medications Medication Instructions Recorded Confirmed Type Fexofenadine HCl [Nelsy Allergy] 180 mg PO DAILY 09/13/21 09/20/21 History Levothyroxine Sodium [Synthroid] 25 mcg PO AC-BRKFST 09/13/21 09/20/21 History Omeprazole Magnesium [PriLOSEC OTC] 20 mg PO DAILY 09/13/21 09/20/21 History Allergies Allergy/AdvReac Type Severity Reaction Status Date / Time moxifloxacin [From Avelox] Allergy Rash/Hives Verified 09/20/21 15:29 on entire body
[2021-09-23 10:26] LABS: Basophils % (A) 1 %; Eosinophils # (A) 0.1 k/uL (0-0.7); Eosinophils % (A) 1 %; HCT 40.7 % (34.0-46.0); HGB 13.2 gm/dL (11.4-16.0); Lymphocytes # (A) 1.7 k/uL (1.0-4.8); Lymphocytes % (A) 36 %; MCH 27.5 pg (25.0-35.0); MCHC 32.6 g/dL (31.0-37.0); MCV 84.6 fL (80.0-100.0); Mean Platelet Volume 7.4; Monocytes # (A) 0.4 k/uL (0-1.0); Monocytes % (A) 9 %; Neutrophils # (A) 2.4 k/uL (1.3-7.7); Neutrophils % (A) 50 %; Platelet Count 431 k/uL (150-450); RDW 14.2 % (11.5-15.5); WBC 4.7 k/uL (3.8-10.6)
[2021-09-23 10:38] LABS: ALT 22 U/L (4-34); African American GFR (CKD) >90 (>60 ml/min/1.73 sqM); Albumin 4.9 g/dL (3.5-5.0); Anion Gap 14 mmol/L; Blood Urea Nitrogen 31 mg/dL (7-17); Calcium 9.8 mg/dL (8.4-10.2); Carbon Dioxide 23 mmol/L (22-30); Chloride 104 mmol/L (98-107); Glucose 116 mg/dL (74-99); Non-African American GFR(CKD) >90 (>60 ml/min/1.73 sqM); Sodium 141 mmol/L (137-145); Total Bilirubin 0.5 mg/dL (0.2-1.3); Total Protein 8.2 g/dL (6.3-8.2)
[2021-09-23 10:42] LABS: AST 34 U/L (14-36); Alkaline Phosphatase 77 U/L (38-126); Potassium 4.8 mmol/L (3.5-5.1)
[2021-09-23 12:34] VITALS: TEMP 97.4
[2021-09-23] MEDS: HYDROmorphone 0.5 MG/0.5 ML SYRINGE IVP PRN ×2 (12:35→12:49)
--- NOTE | 2021-09-23 13:24 | P.OP ---
Date of Procedure: 09/23/21 Description of Procedure: SURGEON: MARIPOSA DE JESUS MD PREOPERATIVE DIAGNOSES: 1. Chronic cholecystitis 2. Morbid obesity due to excess calories, BMI 41.4 3. Gastroesophageal reflux disease with paraesophageal hiatal hernia 4. Hypothyroidism POSTOPERATIVE DIAGNOSES: 1. Chronic cholecystitis 2. Morbid obesity due to excess calories, BMI 41.4 3. Gastroesophageal reflux disease with paraesophageal hiatal hernia 4. Hypothyroidism 5. Severe hepatomegaly OPERATION: Robotic-assisted da Fish Xi laparoscopic cholecystectomy, multiport with FIREFLY ESTIMATED BLOOD LOSS: 5 mL. SPECIMENS REMOVED: Gallbladder. COMPLICATIONS: None. OPERATIVE FINDINGS: 1. Severe hepatomegaly adding complexity to the case requiring dome down technique 2. Tattoo dye within the pelvis including proximal ascending colon due to prior colonoscopy for adenoma resection 3. Incarcerated paraesophageal hiatal hernia with over 5 cm width midline diaphragmatic defect with over 40% incarceration of the proximal stomach 4. Severe hepatomegaly extending to the left upper abdomen completely obscuring the spleen INDICATIONS: The patient is a 55 year-old female who presents with right upper quadrant, epigastric abdominal pain with chronic cholecystitis. Surgical intervention with cholecystectomy was described. Robotic assisted laparoscopic approach was described. Benefits and risks of the procedure including but not limited to bleeding, infection, injury to the biliary tree was reviewed. Informed consent was obtained. DESCRIPTION OF PROCEDURE: Patient was brought to the operating room, placed in supine position. After general induction, the abdomen had been prepped and draped in standard sterile fashion. The robotic da Fish XI system was primed. After a timeout protocol was performed, the patient had been prepped and draped in standard sterile fashion. The patient was injected with indocyanine green. A 5 mm 0 degrees laparoscopic trocar entry was performed along the left upper quadrant. The abdomen insufflated to 15 mmHg pressure which was tolerated well. Diagnostic laparoscopy demonstrated no injury to bowel viscera or mesentery. Severe hepatomegaly was identified with the gallbladder completely obscured by the liver including the spleen. Next, two 8 mm robotic ports were placed along the right upper abdomen. The camera 8-mm port was maintained along the epigastrium. Another 8 mm port was placed along the left upper abdominal wall after exchanging the 5 mm port. Please note that the ports were placed at least 10 to 15 cm away from the target anatomy of the gallbladder. The robot was docked along the left lateral abdomen. The patient was repositioned in reverse Trendelenburg position with the right side up. Using a grasper for arm 3, a grasper for arm 4, including hook cautery for arm 1, the robotic system was docked and primed as described. Instruments were interchanged by the data assistant including hook cautery, Bovie cautery and clip appliers. I had sat at the console. The gallbladder was reflected towards the dome of the liver. Due to the large size of the liver, dome down technique was performed. Using a sponge, the liver was reflected towards the diaphragm and starting at the gallbladder fundus, hook cautery was used to find the avascular plane between the liver and the gallbladder. As the gallbladder was dissected from the hepatic fossa, hemostasis was checked using hook cautery. Next, indocyanine green was used to confirm the common bile duct as well as cystic duct. The cystic duct was short and dissection was performed at the junction of the cystic duct and infundibulum. The infundibulum was retracted laterally to expose the cystic duct away from the common bile duct. The cystic duct was dissected free from its surrounding tissue. FIREFLY was used to identify the cystic structures. A critical view of safety was obtained. A singular structure emanating from the gallbladder was confirmed. Large PLASTIC clips were used throughout the entire case. Using a clip business systems consultant, a clip was placed at the junction of the infundibulum and cystic duct. The cystic duct was divided using vessel sealer. Next, the cystic artery was clipped and cauterized. Electro-Bovie cautery and vessel sealer was used to remove the gallbladder without decompression. Hemostasis was checked and found to be adequate. The robot was undocked. I re-scrubbed into the case. Within the pelvis, multiple tattoo inking was found along the peritoneum with a dark tattoo spot along the proximal ascending colon. A 10 mm Endo Catch bag was used to remove the gallbladder in total via the left upper quadrant incision after widening the incision. The specimen was removed from the abdominal cavity. All pneumoperitoneum instruments were evacuated from the abdominal cavity. The incisions were cleansed using dilute hydrogen peroxide. The incisions were reapproximated using 4-0 Monocryl in an interrupted subcuticular fashion. Please note along the trocar sites, local anesthetic was placed as a field block prior to insertion of all instruments. Liquid glue was applied to the skin. At the end of the procedure needle, sponge, and instrument count had been verified correct by the surgical dressing maker. The patient was transferred to postanesthesia care unit in stable condition. Intraoperative films were shared with the patient's family who were pleased with the level of care. Plan - Discharge Summary Discharge Rx Participant: Yes New Discharge Prescriptions: New Ibuprofen [Motrin] 600 mg PO Q8HR PRN #30 tab PRN Reason: Pain Acetaminophen Tab [Tylenol Tab] 1,000 mg PO Q6HR PRN #30 tablet PRN Reason: Pain Simethicone [Gas-X] 125 mg PO AC-TID PRN #20 capsule PRN Reason: Pain Continue Omeprazole Magnesium [PriLOSEC OTC] 20 mg PO DAILY Fexofenadine HCl [Nelsy Allergy] 180 mg PO DAILY Levothyroxine Sodium [Synthroid] 25 mcg PO AC-RUST Discharge Medication List Fexofenadine HCl [Nelsy Allergy] 180 mg PO DAILY 09/13/21 [History] Levothyroxine Sodium [Synthroid] 25 mcg PO AC-BRKFST 09/13/21 [History] Omeprazole Magnesium [PriLOSEC OTC] 20 mg PO DAILY 09/13/21 [History] Acetaminophen Tab [Tylenol Tab] 1,000 mg PO Q6HR PRN #30 tablet 09/23/21 [Rx] Ibuprofen [Motrin] 600 mg PO Q8HR PRN #30 tab 09/23/21 [Rx] Simethicone [Gas-X] 125 mg PO AC-TID PRN #20 capsule 09/23/21 [Rx] Follow up Appointment(s)/Referral(s): Mariposa De Jesus MD [STAFF PHYSICIAN] - 09/28/21 (Telehealth) Patient Instructions/Handouts: *[facility] - Laparoscopic Cholecystectomy Discharge Instructions, *[facility] - (Anesthesia) Discharge Instructions Outpatient Surgery, Low Fat Diet (DC), Laparoscopic Cholecystectomy (DC) Activity/Diet/Wound Care/Special Instructions: Recommend low-fat diet for the next 2 days. No lifting over 10 pounds in 2 weeks until Oct 07. May shower. No bath tub soaks for two weeks until Oct 07. Diet as tolerated. Use Tylenol, simethicone and ibuprofen or Aleve scheduled for the next 24-48 hours for best pain relief. Use ice along incisions for today to prevent swelling. Discharge Disposition: HOME SELF-CARE
[2021-09-23 14:49] VITALS: BP 97/64; PULSE 92; RESP 16
== END | disposition home or self-care (01) ==
LOC: OR 09:44
PROVIDERS: ATTEND Surgery Plastic and Reconstructive Surgery
DX: K81.1 Chronic cholecystitis (principal); K21.9 Gastro-esophageal reflux disease without esophagitis; E07.9 Disorder of thyroid, unspecified; R01.1 Cardiac murmur, unspecified; Z98.891 History of uterine scar from previous surgery; Z98.51 Tubal ligation status; Z90.710 Acquired absence of both cervix and uterus; E66.01 Morbid (severe) obesity due to excess calories; Z68.41 Body mass index [BMI] 40.0-44.9, adult; K44.9 Diaphragmatic hernia without obstruction or gangrene; E03.9 Hypothyroidism, unspecified; R16.0 Hepatomegaly, not elsewhere classified; Z79.890 Hormone replacement therapy; Z79.899 Other long term (current) drug therapy; Z88.1 Allergy status to other antibiotic agents
CPT/HCPCS: 47562; S2900; 80053; 85025; 88304

== ENCOUNTER 2021-11-29 11:04 | Emergency (ER) | payer OTHER, BC ==
[2021-11-29 11:13] VITALS: RESP 18
[2021-11-29 11:52] LABS: Basophils % (A) 1 %; Eosinophils # (A) 0.1 k/uL (0-0.7); Eosinophils % (A) 2 %; HCT 39.6 % (34.0-46.0); HGB 13.4 gm/dL (11.4-16.0); Lymphocytes # (A) 2.2 k/uL (1.0-4.8); Lymphocytes % (A) 36 %; MCHC 33.9 g/dL (31.0-37.0); MCV 85.5 fL (80.0-100.0); Mean Platelet Volume 8.1; Monocytes # (A) 0.4 k/uL (0-1.0); Monocytes % (A) 7 %; Neutrophils # (A) 3.1 k/uL (1.3-7.7); Neutrophils % (A) 51 %; Platelet Count 359 k/uL (150-450); RBC 4.63 m/uL (3.80-5.40); RDW 15.2 % (11.5-15.5)
[2021-11-29 11:59] LABS: Prothrombin Time 10.8 sec (9.0-12.0)
--- NOTE | 2021-11-29 12:10 | XR ---
EXAMINATION TYPE: XR chest 2V DATE OF EXAM: 11/29/2021 12:04 PM COMPARISON: Chest radiographs from 06/20/2021 TECHNIQUE: XR chest 2V Frontal and lateral views of the chest. CLINICAL INDICATION:Female, 55 years old with history of chest pain/sob; FINDINGS: Lungs/Pleura: There is no evidence of pleural effusion, focal consolidation, or pneumothorax. Pulmonary vascularity: Unremarkable. Heart/mediastinum: Cardiomediastinal silhouette is unremarkable. Musculoskeletal: No acute osseous pathology. Other findings: Larger large hiatal hernia redemonstrated. IMPRESSION: 1. No acute cardiopulmonary disease/process. 2. Moderate to large hiatal hernia redemonstrated.
[2021-11-29 12:15] LABS: ALT 29 U/L (4-34); AST 28 U/L (14-36); African American GFR (CKD) >90 (>60 ml/min/1.73 sqM); Albumin 4.7 g/dL (3.5-5.0); Alkaline Phosphatase 90 U/L (38-126); Anion Gap 14 mmol/L; Blood Urea Nitrogen 32 mg/dL (7-17); Calcium 9.5 mg/dL (8.4-10.2); Carbon Dioxide 21 mmol/L (22-30); Chloride 105 mmol/L (98-107); Glucose 121 mg/dL (74-99); Non-African American GFR(CKD) >90 (>60 ml/min/1.73 sqM); Potassium 4.1 mmol/L (3.5-5.1); Sodium 140 mmol/L (137-145); Total Bilirubin 0.6 mg/dL (0.2-1.3); Total Protein 7.6 g/dL (6.3-8.2)
--- NOTE | 2021-11-29 12:16 | ED ---
General Adult HPI - General Chief complaint: Chest Pain Stated complaint: Chest Pain Time Seen by Provider: 11/29/21 12:04 Source: patient, RN notes reviewed, old records reviewed Mode of arrival: wheelchair Limitations: no limitations - History of Present Illness Initial comments: 55-year-old female presents to the emergency room with complaints of chest pain that started around 10:00 while at work. Patient states that she did take an aspirin with some relief. She describes the pain as an ache and nonradiating. Denies any cough or fevers. No nausea, vomiting or diarrhea. She does have a history of GERD. States that she does have history of inverted T waves and has seen Dr. Jack in the past. She checked her watch which showed inverted T waves again and she is concerned for a cardiac event. She is a nonsmoker. States only takes levothyroxine for hypothyroidism. -: hour(s) (2) Location: chest Radiation: non-radiation Severity scale (1-10): 5 Quality: aching Improves with: medication (asa) Worsens with: none Associated Symptoms: shortness of breath Treatments Prior to Arrival: Aspirin - Related Data Home Medications Medication Instructions Recorded Confirmed Fexofenadine HCl [Nelsy Allergy] 180 mg PO DAILY 09/13/21 09/23/21 Levothyroxine Sodium [Synthroid] 25 mcg PO AC-BRKFST 09/13/21 09/23/21 Omeprazole Magnesium [PriLOSEC OTC] 20 mg PO DAILY 09/13/21 09/23/21 Previous Rx's Medication Instructions Recorded Acetaminophen Tab [Tylenol Tab] 1,000 mg PO Q6HR PRN #30 tablet 09/23/21 Ibuprofen [Motrin] 600 mg PO Q8HR PRN #30 tab 09/23/21 Simethicone [Gas-X] 125 mg PO AC-TID PRN #20 capsule 09/23/21 Allergies Allergy/AdvReac Type Severity Reaction Status Date / Time moxifloxacin [From Avelox] Allergy Rash/Hives Verified 11/29/21 11:09 on entire body Review of Systems ROS Statement: Those systems with pertinent positive or pertinent negative responses have been documented in the HPI. ROS Other: All systems not noted in ROS Statement are negative. Past Medical History Past Medical History: Blood Disorder, GERD/Reflux, Thyroid Disorder Additional Past Medical History / Comment(s): Environmental allergies. Heart murmur. Enlarged liver. "Too many platelets". "Fall 09/13/21, hit head, side of face, had CT, everything ok". History of Any Multi-Drug Resistant Organisms: None Reported Past Surgical History: Section, Hysterectomy, Orthopedic Surgery, Tubal Ligation Additional Past Surgical History / Comment(s): SEPTOPLASTY, RIGHT KNEE SCOPE X2. Past Anesthesia/Blood Transfusion Reactions: Previous Problems w/ Anesthesia Additional Past Anesthesia/Blood Transfusion Reaction / Comment(s): WOKE UP TWICE DURING HYSTERECTOMY. Past Psychological History: No Psychological Hx Reported Smoking Status: Never smoker Past Alcohol Use History: Rare Past Drug Use History: None Reported - Past Family History Father Family Medical History: Cancer General Exam Limitations: no limitations General appearance: alert, in no apparent distress Head exam: Present: atraumatic Eye exam: Present: normal appearance. Absent: scleral icterus, conjunctival injection, periorbital swelling ENT exam: Present: mucous membranes moist Neck exam: Present: normal inspection, full ROM. Absent: tenderness, meningismus Respiratory exam: Present: normal lung sounds bilaterally. Absent: respiratory distress, wheezes, rales, rhonchi, stridor, chest wall tenderness, accessory muscle use Cardiovascular Exam: Present: regular rate, normal rhythm GI/Abdominal exam: Present: soft. Absent: distended, tenderness, guarding, rebo und, rigid Extremities exam: Present: normal capillary refill. Absent: pedal edema Neurological exam: Present: alert, oriented X3 Psychiatric exam: Present: normal affect, normal mood Skin exam: Present: warm, dry, normal color. Absent: cyanosis, diaphoretic, petechiae, pallor Course Vital Signs 11/29/21 11/29/21 11:09 13:44 Temperature 97.5 F L 98.2 F Pulse Rate 82 73 Respiratory 18 18 Rate Blood Pressure 151/94 131/86 O2 Sat by Pulse 99 97 Oximetry EKG Findings - EKG Results: EKG: sinus rhythm (Ventricular rate 76, PA interval 0.208, QRS 0.93, QTC 0.411; indeterminate axis; no significant change compared to old 06/20/21) Medical Decision Making - Medical Decision Making Patient presents with an "ache" in her chest that started at 10:00 while at work. She states that she took an aspirin prior to arrival which did help with her symptoms. Chest x-ray shows a large hiatal hernia redemonstrated compared to 06/20/2021. No acute cardiopulmonary disease or process. No evidence of leukocytosis. Hemoglobin and hematocrit are stable. Electrolytes are unremarkable. EKG shows sinus rhythm with no significant change compared to old 06/20/2021. Troponin is negative at 0.012. HEART score low. Patient was offered admission with consult cardiology and declined. She states that she believes this may be related to her hiatal hernia. She states she does have a follow-up appointment with Dr. De Jesus in January to address her hiatal hernia. Dr. De Jesus wanted her liver to "shrink" before doing surgery. She states that she had a stress test in September of this year with Dr. Jack that was normal. Stress eport received and reviewed showing fair exercise tolerance, no symptoms of typical angina, no dysrhythmia, normal electrocardiogram response, no evidence of stress-induced ischemia.. She was directed to return to the emergency room with any new or concerning symptoms, follow-up with her primary care doctor this week and surgeon as scheduled. She is agreeable to this plan of care. Vital signs are stable. Case discussed with Dr. Bernardo. - Lab Data Result diagrams: 11/29/21 11:20 11/29/21 11:20 Lab Results 11/29/21 11/29/21 11/29/21 Range/Units 11:20 11:20 11:20 WBC 6.0 (3.8-10.6) k/uL RBC 4.63 (3.80-5.40) m/uL Hgb 13.4 (11.4-16.0) gm/dL Hct 39.6 (34.0-46.0) % MCV 85.5 (80.0-100.0) fL MCH 29.0 (25.0-35.0) pg MCHC 33.9 (31.0-37.0) g/dL RDW 15.2 (11.5-15.5) % Plt Count 359 (150-450) k/uL MPV 8.1 Neutrophils % 51 % Lymphocytes % 36 % Monocytes % 7 % Eosinophils % 2 % Basophils % 1 % Neutrophils # 3.1 (1.3-7.7) k/uL Lymphocytes # 2.2 (1.0-4.8) k/uL Monocytes # 0.4 (0-1.0) k/uL Eosinophils # 0.1 (0-0.7) k/uL Basophils # 0.0 (0-0.2) k/uL PT 10.8 (9.0-12.0) sec INR 1.0 (<1.2) Sodium 140 (137-145) mmol/L Potassium 4.1 (3.5-5.1) mmol/L Chloride 105 (98-107) mmol/L Carbon Dioxide 21 L (22-30) mmol/L Anion Gap 14 mmol/L BUN 32 H (7-17) mg/dL Creatinine 0.67 (0.52-1.04) mg/dL Est GFR (CKD-EPI)AfAm >90 (>60 ml/min/1.73 sqM) Est GFR (CKD-EPI)NonAf >90 (>60 ml/min/1.73 sqM) Glucose 121 H (74-99) mg/dL Calcium 9.5 (8.4-10.2) mg/dL Total Bilirubin 0.6 (0.2-1.3) mg/dL AST 28 (14-36) U/L ALT 29 (4-34) U/L Alkaline Phosphatase 90 (38-126) U/L Troponin I (0.000-0.034) ng/mL Total Protein 7.6 (6.3-8.2) g/dL Albumin 4.7 (3.5-5.0) g/dL 11/29/21 Range/Units 11:20 WBC (3.8-10.6) k/uL RBC (3.80-5.40) m/uL Hgb (11.4-16.0) gm/dL Hct (34.0-46.0) % MCV (80.0-100.0) fL MCH (25.0-35.0) pg MCHC (31.0-37.0) g/dL RDW (11.5-15.5) % Plt Count (150-450) k/uL MPV Neutrophils % % Lymphocytes % % Monocytes % % Eosinophils % % Basophils % % Neutrophils # (1.3-7.7) k/uL Lymphocytes # (1.0-4.8) k/uL Monocytes # (0-1.0) k/uL Eosinophils # (0-0.7) k/uL Basophils # (0-0.2) k/uL PT (9.0-12.0) sec INR (<1.2) Sodium (137-145) mmol/L Potassium (3.5-5.1) mmol/L Chloride (98-107) mmol/L Carbon Dioxide (22-30) mmol/L Anion Gap mmol/L BUN (7-17) mg/dL Creatinine (0.52-1.04) mg/dL Est GFR (CKD-EPI)AfAm (>60 ml/min/1.73 sqM) Est GFR (CKD-EPI)NonAf (>60 ml/min/1.73 sqM) Glucose (74-99) mg/dL Calcium (8.4-10.2) mg/dL Total Bilirubin (0.2-1.3) mg/dL AST (14-36) U/L ALT (4-34) U/L Alkaline Phosphatase (38-126) U/L Troponin I <0.012 (0.000-0.034) ng/mL Total Protein (6.3-8.2) g/dL Albumin (3.5-5.0) g/dL Disposition Clinical Impression: Chest pain, Hiatal hernia Disposition: HOME SELF-CARE Condition: Good Instructions (If sedation given, give patient instructions): Chest Pain (ED) Additional Instructions: Chest x-ray today shows a large hiatal hernia which may be the cause of your symptoms. You can try antacids such as Mylanta or Tums. EKG shows no significant changes compared to your old EKG. Your blood work is unremarkable. Please follow-up with your primary care doctor and welfare director for continuation of care. Keep your appointment with Dr. De Jesus in January regarding your hiatal hernia. Return to the emergency room with any new or concerning symptoms including increased chest pain, difficulty breathing, or persistent nausea vomiting. Is patient prescribed a controlled substance at d/c from ED?: No Referrals: Ray Mac III, MD [Primary Care Provider] - 1-2 days Alberto Jack MD [STAFF PHYSICIAN] - 1-2 days Time of Disposition: 13:14
[2021-11-29 13:45] VITALS: BP 131/86; PULSE 73; TEMP 98.2
== END 2021-11-29 13:44 | disposition home or self-care (01) ==
LOC: EC 11:04
DX: R07.9 Chest pain, unspecified (principal); K44.9 Diaphragmatic hernia without obstruction or gangrene; E03.9 Hypothyroidism, unspecified; K21.9 Gastro-esophageal reflux disease without esophagitis; Z88.1 Allergy status to other antibiotic agents; Z79.890 Hormone replacement therapy; Z79.899 Other long term (current) drug therapy
CPT/HCPCS: 36415; 71046; 80053; 84484; 85025; 85610; 93005; 99285

== ENCOUNTER 2022-01-20 07:48 | Day surgery (SDC) | payer OTHER, BC ==
[2022-01-18 16:05] VITALS: BMI 37.3
--- NOTE | 2022-01-20 05:56 | P.GSHP ---
History of Present Illness H&P Date: 01/20/22 CHIEF COMPLAINT: Colon screen HISTORY OF PRESENT ILLNESS: The patient is a 56-year-old female who presents for colon screen. Lower endoscopy was offered for further evaluation and management. PAST MEDICAL HISTORY: Please see list. PAST SURGICAL HISTORY: Please see list. MEDICATIONS: Please see list. ALLERGIES: Please see list. SOCIAL HISTORY: No illicit drug use FAMILY HISTORY: No reports of Crohn disease or ulcerative colitis. REVIEW OF ORGAN SYSTEMS: CONSTITUTIONAL: No reports of fevers or chills. PHYSICAL EXAM: VITAL SIGNS: Stable GENERAL: Well-developed pleasant in no acute distress. HEENT: No scleral icterus. Extraocular movements grossly intact. Moist buccal mucosa. NECK: Supple without lymphadenopathy. CHEST: Unlabored respirations. Equal bilateral excursions. CARDIOVASCULAR: Regular rate and rhythm. Distal 2+ pulses. ABDOMEN: Soft, nontender, nondistended. MUSCULOSKELETAL: No clubbing, cyanosis, or edema. ASSESSMENT: 1. Colon screen. PLAN: 1. Recommend proceeding with a lower endoscopy Past Medical History Past Medical History: Blood Disorder, GERD/Reflux, Thyroid Disorder Additional Past Medical History / Comment(s): Environmental allergies. Heart murmur. Enlarged liver. "Too many platelets". Hiatal Hernia. History of Any Multi-Drug Resistant Organisms: None Reported Past Surgical History: Section, Cholecystectomy, Hysterectomy, Orthopedic Surgery, Tubal Ligation Additional Past Surgical History / Comment(s): SEPTOPLASTY, RIGHT KNEE SCOPE X2. Past Anesthesia/Blood Transfusion Reactions: Previous Problems w/ Anesthesia, Postoperative Nausea & Vomiting (PONV) Additional Past Anesthesia/Blood Transfusion Reaction / Comment(s): WOKE UP TWICE DURING HYSTERECTOMY. WITH GALLBLADDER HAD PONV. Past Psychological History: No Psychological Hx Reported Smoking Status: Never smoker Past Alcohol Use History: Rare Past Drug Use History: None Reported - Past Family History Father Family Medical History: Cancer Mother Family Medical History: Pulmonary Embolus Medications and Allergies Home Medications Medication Instructions Recorded Confirmed Type Fexofenadine HCl [Nelsy Allergy] 180 mg PO DAILY 09/13/21 01/18/22 History Levothyroxine Sodium [Synthroid] 25 mcg PO AC-BRKFST 09/13/21 01/18/22 History Omeprazole Magnesium [PriLOSEC OTC] 20 mg PO DAILY 09/13/21 01/18/22 History Allergies Allergy/AdvReac Type Severity Reaction Status Date / Time moxifloxacin [From Avelox] Allergy Rash/Hives Verified 01/18/22 15:56 on entire body
[~2022-01-20 07:48] MED LIST changes: -ACETAMINOPHEN TAB 500 MG TAB PO PRN; -BUPIVACAIN-EPI 0.25%-1:200,000 30 ML VIAL SQ ONE; -DEXAMETHASONE SOD PHOSPHATE 4 MG/ML 1 ML VIAL IV ONE; -FAMOTIDINE 20 MG TAB PO PRN; -GABAPENTIN 300 MG CAP PO PRN; -GLYCOPYRROLATE 0.2 MG/ML 2 ML VIAL ONE; -HEPARIN SODIUM,PORCINE/PF 5,000 UNIT/0.5 ML SYRINGE SQ PRN; -INDOCYANINE GREEN 25 MG VIAL IV ONE; -INDOCYANINE GREEN 25 MG VIAL IV STA; -LIDOCAINE 1% (10MG/ML) FOR IV START INTRADERMA PRN; -LIDOCAINE 2% INJ 20 MG/ML (2 ML VIAL) ONE; -MELOXICAM 7.5 MG TAB PO PRN; -MIDAZOLAM 2 MG/2 ML VIAL ONE; -NEOSTIGMINE 1 MG/ML 10 ML VIAL ONE; -ONDANSETRON 4 MG/2 ML VIAL IVP PRN; -ONDANSETRON 4 MG/2 ML VIAL ONE; -PHENYLEPHRINE-0.9% NACL SYG 1,000 MCG/10 ML SYRINGE ONE; -PROPOFOL 10 MG/ML 20 ML VIAL IV ONE; -ROCURONIUM 10 MG/ML (5 ML VIAL) IV ONE; -SCOPOLAMINE 1 MG/72 HR PATCH TRANSDERM PRN; -SUCCINYLCHOLINE CHLORIDE 200 MG/10 ML VIAL IV ONE; -fentaNYL (PF) 50 MCG/ML 2 ML AMP ONE
[2022-01-20 08:20] VITALS: TEMP 97.2
[2022-01-20] MEDS ORDERED: LACTATED RINGERS 1,000 ML IV ONE (08:25)
[2022-01-20] MEDS ORDERED: LIDOCAINE 2% INJ 20 MG/ML (2 ML VIAL) ONE (08:33)
[2022-01-20] MEDS ORDERED: PROPOFOL 10 MG/ML 20 ML VIAL IV ONE (08:33)
--- NOTE | 2022-01-20 08:42 | P.HPADDEND ---
H&P Addendum H&P Addendum Date: 01/20/22 Patient reports that severe atypical chest pain due to paraesophageal hiatal hernia. Recommend repeat upper endoscopy for assessment of incarcerated paraesophageal hiatal hernia. EGD advised. Consent obtained.
--- NOTE | 2022-01-20 08:50 | P.PCN ---
Date of Procedure: 01/20/22 Description of Procedure: PREOPERATIVE DIAGNOSIS: Hiatal hernia Gastroesophageal reflux disease. Morbid obesity. Atypical chest pain POSTOPERATIVE DIAGNOSIS: Paraesophageal hiatal hernia, incarcerated Gastroesophageal reflux disease. Morbid obesity. Atypical chest pain OPERATION: Esophagogastroduodenoscopy with biopsies along antrum. SURGEON: Mariposa De Jesus MD ANESTHESIA: MAC. INDICATIONS: The patient is a 56-year-old female who presents witatypical chest pain, hiatal hernia and h reflux disease. Benefits and risks of the procedure were described. Informed consent was obtained. DESCRIPTION: The patient was brought into the endoscopy suite and laid in the left lateral decubitus position. An Olympus gastroscope was passed along the posterior oropharynx down to the distal esophagus where the squamocolumnar junction was encountered at 33 cm from the incisors. The stomach was entered and no bile reflux was found. Additional findings are listed below. Biopsies with cold forceps were obtained of the antrum. The first through third portion of the duodenum was examined. Retroflexion of the scope confirmed Hill grade 4 lower esophageal valve. The squamocolumnar junction demonstrated LA grade A erosive esophagitis. The stomach was desufflated. The patient tolerated the procedure well. FINDINGS: Squamocolumnar junction 33 cm from the incisors. Diaphragmatic hiatus at 40 cm. Hiatal hernia, 7 cm, paraesophageal hiatal hernia Hill grade 4 lower esophageal valve. LA grade A erosive esophagitis. No active duodenitis. Chronic gastritis RECOMMENDATIONS: Recommend repair urgent of incarcerated paraesophageal hiatal hernia
--- NOTE | 2022-01-20 09:01 | P.PCN ---
Date of Procedure: 01/20/22 Description of Procedure: PREOPERATIVE DIAGNOSIS: Colonoscopy screening. POSTOPERATIVE DIAGNOSIS: Colonoscopy screening. Moderate to severe sigmoid diverticulosis OPERATION: Colonoscopy to the cecum, ileocecal valve and appendiceal orifice. SURGEON: Mariposa De Jesus MD. ANESTHESIA: MAC. INDICATIONS: The patient is a 56-year-old female who presents for colonoscopy screening. Benefits and risks were described and informed consent was obtained. DESCRIPTION OF PROCEDURE: The patient had undergone Sutab prep. The patient had been brought into the operating room and laid in the left lateral decubitus position. After adequate intravenous sedation, the rectum was examined with 2% lidocaine jelly. No external hemorrhoids were encountered. The rectal tone was within normal limits. No lesions were palpated in the rectal vault. An Olympus colonoscope was advanced until the cecum, ileocecal valve and appendiceal orifice were clearly viewed. The prep was excellent. Scattered sigmoid diverticulosis was encountered. No colonic polyps were found. No evidence of focal colitis was found. Retroflexion of the scope demonstrated grade 1 internal hemorrhoids without active bleeding or inflammation. The colon was desufflated. The patient had tolerated the procedure well. Withdrawal time was over 6 minutes. FINDINGS: Aronchick preparation quality scale 1 (1-5) Internal hemorrhoids, grade 1 No external prolapsed hemorrhoids. No arteriovenous malformations. No adenomatous polyps. No focal colitis. Moderate to severe sigmoid diverticulosis RECOMMENDATIONS: Lower endoscopy in 10 years, 2031 Plan - Discharge Summary Discharge Rx Participant: No New Discharge Prescriptions: Continue Omeprazole Magnesium [PriLOSEC OTC] 20 mg PO DAILY Fexofenadine HCl [Nelsy Allergy] 180 mg PO DAILY Levothyroxine Sodium [Synthroid] 25 mcg PO AC-BRKT Discharge Medication List Fexofenadine HCl [Nelsy Allergy] 180 mg PO DAILY 09/13/21 [History] Levothyroxine Sodium [Synthroid] 25 mcg PO AC-BRKT 09/13/21 [History] Omeprazole Magnesium [PriLOSEC OTC] 20 mg PO DAILY 09/13/21 [History] Follow up Appointment(s)/Referral(s): Mariposa De Jesus MD [STAFF PHYSICIAN] - 02/01/22 Patient Instructions/Handouts: Hiatal Hernia (IP), Diverticulosis Diet (GEN), Diverticulosis (GEN) Activity/Diet/Wound Care/Special Instructions: Repeat colonoscopy 10 years, 2031 Discharge Disposition: HOME SELF-CARE
[2022-01-20 09:05] VITALS: RESP 16
[2022-01-20 09:31] VITALS: BP 131/88; PULSE 90
== END 2022-01-20 09:55 | disposition home or self-care (01) ==
LOC: ORWHC2ENDO 07:48
PROVIDERS: ATTEND Surgery Plastic and Reconstructive Surgery
DX: Z12.11 Encounter for screening for malignant neoplasm of colon (principal); K44.9 Diaphragmatic hernia without obstruction or gangrene; K57.30 Diverticulosis of large intestine without perforation or abscess without bleeding; E66.01 Morbid (severe) obesity due to excess calories; R07.89 Other chest pain; K21.00 Gastro-esophageal reflux disease with esophagitis, without bleeding; K29.50 Unspecified chronic gastritis without bleeding; K91.0 Vomiting following gastrointestinal surgery; E07.9 Disorder of thyroid, unspecified; F10.90 Alcohol use, unspecified, uncomplicated; Z98.891 History of uterine scar from previous surgery; Z90.710 Acquired absence of both cervix and uterus; Z86.010 Personal history of colon polyps; Z98.51 Tubal ligation status; Z98.890 Other specified postprocedural states; Z90.49 Acquired absence of other specified parts of digestive tract; Z68.41 Body mass index [BMI] 40.0-44.9, adult; Z83.2 Family history of diseases of the blood and blood-forming organs and certain disorders involving the immune mechanism; Z79.890 Hormone replacement therapy; Z79.1 Long term (current) use of non-steroidal anti-inflammatories (NSAID); Z79.899 Other long term (current) drug therapy; Z88.8 Allergy status to other drugs, medicaments and biological substances
CPT/HCPCS: 45378; 43235; J2704; J2001

== ENCOUNTER → 2022-02-01 | Outpatient (CLI) | payer OTHER ==
--- NOTE | 2022-02-01 10:41 | XR ---
EXAMINATION TYPE: XR ankle complete LT DATE OF EXAM: 02/01/2022 COMPARISON: Left ankle radiograph 12/24/2015. HISTORY: Sprain left ankle TECHNIQUE: 3 views of the left ankle are submitted for evaluation. 3 views of the left foot are submi tted for evaluation. FINDINGS: There is no evidence for fracture or dislocation. Ankle mortise is intact. Joints are prese rved. Mild soft tissue of the ankle most pronounced over the medial malleolus. Tiny plantar calcaneal enthesophyte. IMPRESSION: 1. No evidence for acute fracture. 2. Mild soft tissue edema of the ankle most pronounced over the medial malleolus.
--- NOTE | 2022-02-02 13:06 | XR ---
EXAMINATION TYPE: XR foot complete LT DATE OF EXAM: 02/01/2022 COMPARISON: None HISTORY: Slip left foot went outward TECHNIQUE: 2 view left foot FINDINGS: Hallux valgus deformity is present. Hammertoes are present. Soft tissues appear normal. No displaced fractures are identified. Nondisplaced fracture on the oblique view at the second distal po rtion proximal phalanx may be present correlate with location of the patient's pain. IMPRESSION: 1. Nondisplaced fractures of the distal metadiaphyseal proximal phalanx left foot second digit suspe cted. Correlate with the patient's pain. 2. Hallux valgus deformity.
== END | disposition home or self-care (01) ==
LOC: RADXRMAIN 10:07
PROVIDERS: ATTEND Emergency Medicine
DX: S93.402A Sprain of unspecified ligament of left ankle, initial encounter (principal); S93.602A Unspecified sprain of left foot, initial encounter; R60.0 Localized edema

== ENCOUNTER 2022-02-18 10:18 | Day surgery (SDC) | payer OTHER, BC ==
--- NOTE | 2022-02-18 01:43 | P.GSHP ---
History of Present Illness H&P Date: 02/18/22 CHIEF COMPLAINT: Paraesophageal hiatal hernia with gastroesophageal reflux disease. HISTORY OF PRESENT ILLNESS: The patient is a 56-year-old female who presents with paraesophageal hiatal hernia with anemia, atypical chest pain for over one year. She has completed a barium swallow including upper endoscopy workup. Now she presents for surgical intervention. PAST MEDICAL HISTORY: Please see list. PAST SURGICAL HISTORY: Please see list. MEDICATIONS: Please see list. ALLERGIES: Please see list. SOCIAL HISTORY: No illicit drug use FAMILY HISTORY: No reports of Crohn disease or ulcerative colitis. REVIEW OF ORGAN SYSTEMS: CONSTITUTIONAL: No reports of fevers or chills. GI: Denies any blood in stools or constipation. PHYSICAL EXAM: VITAL SIGNS: Stable GENERAL: Well-developed pleasant and in no acute distress. HEENT: No scleral icterus. Extraocular movements grossly intact. Moist buccal mucosa. NECK: Supple without lymphadenopathy. CHEST: Unlabored respirations. Equal bilateral excursions. CARDIOVASCULAR: Regular rate and rhythm. Distal 2+ pulses. ABDOMEN: Soft, nondistended. No peritoneal signs. MUSCULOSKELETAL: No clubbing, cyanosis, or edema. SKIN: Well-perfused. Good skin turgor. ASSESSMENT: 1. Diaphragmatic paraesophageal hiatal hernia with severe gastroesophageal reflux disease. PLAN: 1. Recommend proceeding with a robotic paraesophageal hiatal hernia with possible mesh. 2. Benefits and risks of surgical intervention was discussed including possibility of open technique. 3. Inpatient hospitalization recommended of 2 nights 4. DVT prophylaxis. 5. Antibiotic prophylaxis. 6. She has also completed a very low caloric high-protein diet to address underlying hepatomegaly. 7. Non narcotic pain management including abdominal wall block described 8. Blood sugar glucose described. 9. Weight loss management described. 10. She is elevated risk due to morbid obesity Past Medical History Past Medical History: Blood Disorder, GERD/Reflux, Thyroid Disorder Additional Past Medical History / Comment(s): Environmental allergies. Heart murmur. Enlarged liver. "Too many platelets" ( pt 's mom had platelet issue as well). Hiatal Hernia. on diet from DR De Jesus to reduce size of liver. History of Any Multi-Drug Resistant Organisms: None Reported Past Surgical History: Section, Cholecystectomy, Hysterectomy, Orthopedic Surgery, Tubal Ligation Additional Past Surgical History / Comment(s): SEPTOPLASTY, RIGHT KNEE SCOPE X2. colonoscopy egd Past Anesthesia/Blood Transfusion Reactions: Previous Problems w/ Anesthesia, Postoperative Nausea & Vomiting (PONV) Additional Past Anesthesia/Blood Transfusion Reaction / Comment(s): WOKE UP TWICE DURING HYSTERECTOMY. WITH GALLBLADDER HAD PONV. Smoking Status: Never smoker - Past Family History Father Family Medical History: Cancer Mother Family Medical History: Cancer, Pulmonary Embolus Additional Family Medical History / Comment(s): stage 4 lung cancer Medications and Allergies Home Medications Medication Instructions Recorded Confirmed Type Fexofenadine HCl [Nelsy Allergy] 180 mg PO DAILY 09/13/21 02/15/22 History Levothyroxine Sodium [Synthroid] 25 mcg PO AC-BRKFST 09/13/21 02/15/22 History Omeprazole Magnesium [PriLOSEC OTC] 20 mg PO DAILY 09/13/21 02/15/22 History Allergies Allergy/AdvReac Type Severity Reaction Status Date / Time moxifloxacin [From Avelox] Allergy Rash/Hives Verified 02/15/22 11:09 on entire body
[~2022-02-18 10:18] MED LIST changes: +ACETAMINOPHEN TAB 500 MG TAB PO ONE; +CHLORHEXIDINE GLUCONATE 15 ML CUP MUCOUS MEM PRN; +HEPARIN SODIUM,PORCINE/PF 5,000 UNIT/0.5 ML SYRINGE SQ PRN; -LACTATED RINGERS 1,000 ML IV SCH; +PANTOPRAZOLE 40 MG/10 ML VIAL IVP PRN; +SCOPOLAMINE 1 MG/72 HR PATCH TRANSDERM ONE
[2022-02-18] MEDS ORDERED: ONDANSETRON 4 MG/2 ML VIAL IVP ONE ×2 (10:29→11:29)
[2022-02-18] MEDS ORDERED: DEXAMETHASONE SOD PHOSPHATE 4 MG/ML 1 ML VIAL IV ONE (10:29)
[2022-02-18] MEDS ORDERED: LIDOCAINE 1% (10MG/ML) FOR IV START INTRADERMA PRN (10:29)
[2022-02-18] MEDS ORDERED: MIDAZOLAM 2 MG/2 ML VIAL IV PRN (10:29)
[2022-02-18] MEDS: LACTATED RINGERS 1,000 ML IV SCH (11:27)
[2022-02-18] MEDS ORDERED: ACETAMINOPHEN TAB 500 MG TAB PO ONE (11:29)
[2022-02-18] MEDS ORDERED: DEXAMETHASONE SOD PHOSPHATE 4 MG/ML 1 ML VIAL IVP ONE (11:29)
[2022-02-18] MEDS ORDERED: SCOPOLAMINE 1 MG/72 HR PATCH TRANSDERM ONE (11:30)
[2022-02-18 11:32] LABS: Basophils % (A) 1 %; Eosinophils % (A) 1 %; HCT 42.2 % (34.0-46.0); HGB 14.6 gm/dL (11.4-16.0); Lymphocytes # (A) 1.5 k/uL (1.0-4.8); Lymphocytes % (A) 29 %; MCH 30.7 pg (25.0-35.0); MCHC 34.6 g/dL (31.0-37.0); MCV 88.9 fL (80.0-100.0); Monocytes # (A) 0.4 k/uL (0-1.0); Monocytes % (A) 8 %; Neutrophils # (A) 3.1 k/uL (1.3-7.7); Neutrophils % (A) 60 %; Platelet Count 325 k/uL (150-450); RBC 4.75 m/uL (3.80-5.40); RDW 13.8 % (11.5-15.5); WBC 5.2 k/uL (3.8-10.6)
[2022-02-18 13:37] LABS: ALT 35 U/L (4-34); AST 32 U/L (14-36); African American GFR (CKD) >90 (>60 ml/min/1.73 sqM); Albumin 4.4 g/dL (3.5-5.0); Alkaline Phosphatase 80 U/L (38-126); Anion Gap 8 mmol/L; Blood Urea Nitrogen 23 mg/dL (7-17); Calcium 9.2 mg/dL (8.4-10.2); Carbon Dioxide 28 mmol/L (22-30); Chloride 106 mmol/L (98-107); Glucose 95 mg/dL (74-99); Non-African American GFR(CKD) 84 (>60 ml/min/1.73 sqM); Potassium 4.1 mmol/L (3.5-5.1); Sodium 142 mmol/L (137-145); Total Bilirubin 0.5 mg/dL (0.2-1.3); Total Protein 7.1 g/dL (6.3-8.2)
[2022-02-18] MEDS ORDERED: PHENYLEPHRINE-0.9% NACL SYG 1,000 MCG/10 ML SYRINGE ONE (14:21)
[2022-02-18] MEDS ORDERED: SUCCINYLCHOLINE CHLORIDE 200 MG/10 ML VIAL IV ONE (14:21)
[2022-02-18] MEDS ORDERED: LIDOCAINE 2% INJ 20 MG/ML (2 ML VIAL) ONE (14:21)
[2022-02-18] MEDS ORDERED: ROCURONIUM 10 MG/ML (5 ML VIAL) IV ONE (14:21)
[2022-02-18] MEDS ORDERED: HYDROmorphone (PF) 1 MG/ML ONE (14:21)
[2022-02-18] MEDS ORDERED: MIDAZOLAM 2 MG/2 ML VIAL ONE (14:21)
[2022-02-18] MEDS ORDERED: GLYCOPYRROLATE 0.2 MG/ML 2 ML VIAL ONE (14:21)
[2022-02-18] MEDS ORDERED: PROPOFOL 10 MG/ML 20 ML VIAL IV ONE (14:21)
[2022-02-18] MEDS ORDERED: fentaNYL (PF) 50 MCG/ML 2 ML AMP ONE (14:21)
[2022-02-18] MEDS ORDERED: BUPIVACAIN-EPI 0.25%-1:200,000 30 ML VIAL SQ ONE (14:49)
[2022-02-18] MEDS ORDERED: LACTATED RINGERS 1,000 ML IV ONE ×2 (15:30→15:54)
[2022-02-18] MEDS ORDERED: KETOROLAC 15 MG/ML 1 ML VIAL IVP ONE (16:28)
[2022-02-18] MEDS ORDERED: diphenhydrAMINE 50 MG/ML 1 ML VIAL IVP PRN (16:36)
[2022-02-18] MEDS ORDERED: HYDROmorphone 1 MG/ML 1 ML SYRINGE IVP PRN (16:36)
[2022-02-18] MEDS ORDERED: NALOXONE 0.4 MG/ML 1 ML VIAL IV PRN (16:36)
[2022-02-18] MEDS: HYDROmorphone 0.5 MG/0.5 ML SYRINGE IVP PRN ×3 (16:46→17:15)
--- NOTE | 2022-02-18 16:47 | P.OP ---
Date of Procedure: 02/18/22 Description of Procedure: SURGEON: AURY OTERO MD PREOPERATIVE DIAGNOSES: 1. Symptomatic paraesophageal diaphragmatic hiatal hernia 2. Gastroesophageal reflux disease. 3. Atypical chest pain 4. Hypothyroidism 5. Morbid obesity due to excess calories, BMI 36.3 6. Hepatomegaly and fatty liver disease POSTOPERATIVE DIAGNOSES: 1. Paraesophageal midline diaphragmatic hernia, 8 cm, with incarceration and gastric volvulus 2. Gastroesophageal reflux disease. 3. Atypical chest pain 4. Hypothyroidism 5. Morbid obesity due to excess calories, BMI 36.3 6. Gastric volvulus with obstruction OPERATION: 1. Robotic-assisted da Fish Xi laparoscopic reduction of gastric volvulus and repair of incarcerated paraesophageal hiatal hernia, 8 x 6 cm, with [place] Biopatch A 8 x 8 cm. 2. Intraoperative esophagogastroduodenoscopy 3. Placement of 56-[place] bougie for esophageal dysmotility ANESTHESIA: General with local anesthetic. ESTIMATED BLOOD LOSS: 5 mL SPECIMENS REMOVED: None COMPLICATIONS: None. Condition: stable Disposition: floor FINDINGS: 1. Midline incarcerated paraesophageal hiatal hernia 8 x 6 cm with gastric volvulus, obstruction and reduced 2. Intraoperative upper endoscopy confirms complete closure of hiatal hernia from Hill grade 4 to Hill grade 1 3. Intraesophageal length over 2 cm 4. Resolved fatty liver disease and hepatomegaly 5. Incarcerated gastric contents with obstruction, over 40% INDICATIONS: The patient is a 56-year-old female who presents with atypical chest pain, gastroesophageal reflux disease poorly controlled despite medications, and a symptomatic diaphragmatic hiatal hernia. Preoperative workup including upper endoscopy demonstrated incarcerated paraesophageal hiatal hernia. Given the severity of symptoms, the patient had elected for surgical intervention. She underwent gastric presurgical diet including high-protein low-carb diet and lost over 45 pounds. Benefits and risks including bleeding, infection, recurrence, dysphagia, injury to the lung, need for further surgery was described at length. Informed consent was obtained. DESCRIPTION: The patient was brought into the operating room and placed in supine position. Preoperatively the patient had received heparin subcutaneously for DVT prophylaxis. After general induction, the abdomen was prepped and draped in standard sterile fashion. The patient had previously voided prior to coming to the operating room. [place] draping was placed along the abdomen. A timeout protocol was confirmed with the surgical team, for which the patient's name, procedure to be performed including DVT prophylaxis with bilateral SCDs, and preoperative antibiotics were also confirmed. A robotic da Fish Xi system was prepped and primed. At 12 cm from the xiphoid to just below the umbilicus, proposed port sites were marked with indelible marker along the left axillary line, left mid-clavicular line with each ports were marked 10 cm from each other. A 5 mm 0 degrees laparoscopic trocar entry was performed along the left upper quadrant. The abdomen was insufflated to 15 mmHg pressure was tolerated well. Diagnostic laparoscopy demonstrated no injury to bowel, viscera, or mesentery. No injury had occurred to the small bowel or viscera. The liver was smooth consistent with two-week high-protein low-carb diet. Previous trochar sites from cholecystectomy were used. Next, one 8 mm robotic port was placed along the right upper abdomen. An 8-mm port was were placed along the right lateral lateral abdominal wall. The camera 8-mm port was maintained along the epigastrium. Another 12 mm port was placed along the left upper abdominal wall after exchanging the 5 mm port. Please note that the ports were placed at least 20 cm away from the target anatomy. Care was taken to check that each robotic arm were safely away from collision with the bed or the patient. At the epigastrium, a medium sized Ellis liver retractor was placed under direct visualization with the [employer] Aide placed under the right shoulder of the patient. All robotic arms were used. The patient was repositioned in reverse Trendelenburg position at 21-degrees after lowering the bed. The robot was docked above the right side of the patient. Using a grasper for arm 3, a grasper for arm 1, including vessel sealer for arm 2, the robotic system was docked and primed as described. Instruments were interchanged by the virtual assistant. I had sat at the console. A large paraesophageal diaphragmatic midline hiatal hernia was identified with gastric volvulus complete incarceration of 40% and stomach into the chest The gastrohepatic ligament was cleaved using a vessel sealer. Next, the phrenoesophageal ligament was mobilized and the distal esophagus was mobilized circumferentially. The left and right crura was identified. Circumferentially, the hernia sac was excised and brought into the peritoneal cavity. Moderate dissection into the mediastinum was performed to release the esophagus into the abdominal cavity. The paraesophageal hiatal hernia sac was also incised and divided from the esophagus. Care was taken to avoid any gastrotomy. The measured defect was consistent with 8 cm axial length and 6 cm in width. After dissection, the distal esophagus of 2+ cm was brought into the abdominal cavity. Once the hiatus and crura was dissected, 2-0 VLOC nonabsorbable suture was placed to reapproximate the diaphragmatic hiatus posteriorly. To buttress the repair, a [place] Biopatch A was prepared along the back table and cut in half of a huynh-hole fashion as to reinforce the repair as an underlay. The mesh was placed along the crural repair and tagged using horizontal mattress sutures using 2-0 VLOC. I went to the head of the bed to perform intraoperative esophagogastroduodenoscopy and placement of a 56Fr bougie. The bougie was passed along the posterior oropharynx into the stomach to address pre-existing esophageal dysmotility for 2 minutes then removed. An Olympus gastroscope was passed through posterior oropharynx. Retroflexion of the scope confirmed a Hill grade 1 lower esophageal valve. A gastric cardia diverticulum was identified. The stomach had been desufflated. No evidence of leaks were found of the esophagus or stomach. The GI tract with desufflated This concluded the endoscopic portion of the case. The robot was undocked from the patient. I re-scrubbed into the case. All instruments and pneumoperitoneum and specimens were evacuated from the abdominal cavity. Incisions were reapproximated using 4-0 Monocryl in an interrupted subcuticular fashion. Liquid glue was applied to the skin. Local anesthetic was infiltrated in all wounds for postop analgesia. At the end of the procedure, needle, sponge, and instrument count was verified correct by the surgical technologist. The patient had tolerated the procedure well and was taken to the postanesthesia unit in stable condition.
[2022-02-18] MEDS: ONDANSETRON 4 MG/2 ML VIAL IVP SCH (18:40)
[2022-02-18] MEDS: METOCLOPRAMIDE 5 MG/ML 2 ML VIAL IVP SCH (18:40)
[2022-02-18] MEDS: KETOROLAC 15 MG/ML 1 ML VIAL IVP SCH (18:42)
[2022-02-18] MEDS: SIMETHICONE 40 MG/0.6 ML DROPS 2,000 MG/30 ML BOTTLE PO SCH (18:43)
[2022-02-18] MEDS: HYOSCYAMINE ORAL DROPS 1.875 MG/15 ML BOTTLE PO SCH (18:45)
[2022-02-18] MEDS: ACETAMINOPHEN IV (For NPO) 1,000 MG in EMPTY BAG 1 BAG IVPB SCH (18:50)
[2022-02-18] MEDS: 0.9% NACL WITH KCL 20 MEQ/L 1,000 ML IV SCH (19:36)
[2022-02-18] MEDS: ALBUTEROL NEBULIZED 2.5 MG/3 ML INHALATION SCH (20:11)
[2022-02-19] MEDS: ACETAMINOPHEN IV (For NPO) 1,000 MG in EMPTY BAG 1 BAG IVPB SCH ×2 (00:08→06:15)
[2022-02-19] MEDS: SIMETHICONE 40 MG/0.6 ML DROPS 2,000 MG/30 ML BOTTLE PO SCH ×2 (00:09→06:17)
[2022-02-19] MEDS: KETOROLAC 15 MG/ML 1 ML VIAL IVP SCH ×2 (00:09→06:16)
[2022-02-19] MEDS: HYOSCYAMINE ORAL DROPS 1.875 MG/15 ML BOTTLE PO SCH ×2 (00:10→06:16)
[2022-02-19] MEDS: METOCLOPRAMIDE 5 MG/ML 2 ML VIAL IVP SCH ×2 (00:10→04:34)
[2022-02-19] MEDS: ONDANSETRON 4 MG/2 ML VIAL IVP SCH ×2 (00:11→04:35)
[2022-02-19 01:45] VITALS: RESP 17
[2022-02-19] MEDS: 0.9% NACL WITH KCL 20 MEQ/L 1,000 ML IV SCH (03:35)
[2022-02-19 07:26] VITALS: BP 103/69; TEMP 97.6
[2022-02-19] MEDS ORDERED: LEVOTHYROXINE 25 MCG TAB PO SCH (07:30)
[2022-02-19] MEDS ORDERED: 1: THIAMINE 100 MG, FOLIC ACID 1 MG in 0.9% NACL WITH KCL 20 MEQ/L 1,000 ML 2: 0.9% NAC IVPB SCH (08:00)
[2022-02-19] MEDS ORDERED: 0.9% NACL WITH KCL 20 MEQ/L 1,000 ML IV SCH (08:00)
--- NOTE | 2022-02-19 08:36 | XR ---
EXAMINATION TYPE: XR abdomen 2V DATE OF EXAM: 02/19/2022 CLINICAL HISTORY: Epigastric pain and reflux. Blas fundoplication surgery one day earlier. TECHNIQUE: Upright frontal lateral views of the abdomen are obtained after patient drank 50 cc of Iso [id number]. COMPARISON: CT abdomen and pelvis June 28, 2021. FINDINGS: The patient swallowed contrast without difficulty or delay. There is no delay in flow thro ugh the diaphragmatic hiatus into proximal stomach. Some abnormal secondary tertiary contractions wit h air-fluid level in the mid to distal esophagus is seen. No persistent hiatal hernia is seen. Patien t remains asymptomatic per technologist. IMPRESSION: No leak or significant obstruction status post Brad fundoplication surgery yesterday.
[2022-02-19] MEDS: ALBUTEROL NEBULIZED 2.5 MG/3 ML INHALATION SCH ×2 (09:00→12:07)
[2022-02-19] MEDS ORDERED: LORATADINE 10 MG TAB PO SCH (09:00)
[2022-02-19] MEDS ORDERED: ENOXAPARIN 30 MG/0.3 ML SYRINGE SQ SCH (09:00)
[2022-02-19] MEDS ORDERED: PANTOPRAZOLE 40 MG/10 ML VIAL IV SCH (09:00)
[2022-02-19 09:04] VITALS: PULSE 68
[2022-02-19 09:09] LABS: Basophils # (A) 0.02 X 10*3/uL (0.00-0.10); Basophils % (A) 0.3 %; Eosinophils # (A) 0.01 X 10*3/uL (0.04-0.35); Eosinophils % (A) 0.1 %; HCT 35.9 % (37.2-46.3); HGB 11.6 g/dL (12.0-15.0); Immature Grans, Automated 0.3 %; Lymphocytes # (A) 1.88 X 10*3/uL (0.90-5.00); Lymphocytes % (A) 26.9 %; MCH 29.8 pg (27.0-32.0); MCHC 32.3 g/dL (32.0-37.0); MCV 92.3 fL (80.0-97.0); Mean Platelet Volume 10.6 fL (9.5-12.2); Monocytes # (A) 0.78 X 10*3/uL (0.20-1.00); Monocytes % (A) 11.2 %; NRBC Per 100 WBC 0 /100 WBCS (0.0-0.0); Neutrophils # (A) 4.28 X 10*3/uL (1.80-7.70); Neutrophils % (A) 61.2 %; Platelet Count 306 X 10*3/uL (140-440); RBC 3.89 X 10*6/uL (4.10-5.20); RDW 15.1 % (11.5-14.5); WBC 6.99 X 10*3/uL (4.50-10.00)
[2022-02-19 09:21] LABS: African American GFR (CKD) 94.2 (60.0-200.0); Anion Gap 12.9 mmol/L (10.00-18.00); Blood Urea Nitrogen 19.4 mg/dL (9.0-27.0); Calcium 8.6 mg/dL (8.7-10.3); Carbon Dioxide 21.1 mmol/L (20.0-27.5); Non-African American GFR(CKD) 81.3 (60.0-200.0); Phosphorus 4.3 mg/dL (2.4-5.1); Potassium 4.8 mmol/L (3.5-5.5)
--- NOTE | 2022-02-19 09:27 | P.DS ---
Providers Expected date of discharge: 02/19/22 Attending physician: Mariposa De Jesus Primary care physician: [facility] Course: 56-year-old female underwent elective laparoscopic da Fish assisted repair paraesophageal hernia yesterday. Doing well today. No significant pain. Upper GI was performed this morning showing no evidence of leak or obstruction. Patient is tolerating her liquid diet. She would like to go home. We'll discharge. Plan outpatient follow-up with Dr. Reynoso. Plan - Discharge Summary Discharge Rx Participant: Yes New Discharge Prescriptions: New bisacodyL [Dulcolax] 5 mg PO DAILY PRN #10 tab PRN Reason: Constipation Simethicone 40 mg/0.6 ml Drops [Mylicon Drops] 40 mg PO PCHS PRN #30 ml PRN Reason: Gas Acetaminophen Tab [Tylenol Tab] 1,000 mg PO Q6HR PRN #30 tablet PRN Reason: Pain Ondansetron Odt [Zofran Odt] 4 mg PO Q8HR PRN #9 tab PRN Reason: Nausea Continue Fexofenadine HCl [Nelsy Allergy] 180 mg PO DAILY Levothyroxine Sodium [Synthroid] 25 mcg PO AC-BRKFST Discontinued Omeprazole Magnesium [PriLOSEC OTC] 20 mg PO DAILY Discharge Medication List Fexofenadine HCl [Nelsy Allergy] 180 mg PO DAILY 09/13/21 [History] Levothyroxine Sodium [Synthroid] 25 mcg PO AC-BRKFST 09/13/21 [History] Acetaminophen Tab [Tylenol Tab] 1,000 mg PO Q6HR PRN #30 tablet 02/18/22 [Rx] Ondansetron Odt [Zofran Odt] 4 mg PO Q8HR PRN #9 tab 02/18/22 [Rx] Simethicone 40 mg/0.6 ml Drops [Mylicon Drops] 40 mg PO PCHS PRN #30 ml 02/18/22 [Rx] bisacodyL [Dulcolax] 5 mg PO DAILY PRN #10 tab 02/18/22 [Rx] Follow up Appointment(s)/Referral(s): Mariposa De Jesus MD [STAFF PHYSICIAN] - 03/01/22 Patient Instructions/Handouts: *[facility] - Anesthesia Discharge Instructions, *[facility] - Managing Your Pain After Surgery Without Opioids, *[facility] - Scopalamine Patch Instructions, Hiatal Hernia (DC), Laparoscopic Hiatal Hernia Repair (DC) Activity/Diet/Wound Care/Special Instructions: Liquid diet only for 2 weeks until Mar 04 No lifting over 4 pounds in 4 weeks, Mar 21June shower No soaking in bath tubs for 2 weeks, Mar 04 Please notify your surgeon if you develop nausea and vomiting including new onset of abdominal pain. Please ambulate at all times. Use Simethicone, Gas-X, Tylenol and ibuprofen or Aleve scheduled for the next 24-48 hours for best pain relief. Use ice along incisions for the today to prevent swelling. Please open, cut, crush pills larger than the size of a tic tack No carbonated beverages. No straws. Do not remove scopolamine patch for 3 days, if present Avoiding Gas Avoid drinking through a straw. Do not chew gum or tobacco. These actions cause you to swallow air, which produces excess gas in your stomach. Chew with your mouth closed. Avoid any foods that cause stomach gas and distention. These foods include corn, dried beans, peas, lentils, onions, broccoli, cauliflower and any food from the cabbage family. Avoid carbonated drinks, alcohol, citrus and tomato products. Carbonated drinks (sodas) are not allowed for the first six to eight weeks after surgery. After this time you can try them again in small amounts Clear Liquid Diet The first diet after surgery is the clear liquid diet. It includes the following liquids: Apple juice Cranberry juice Grape juice Chicken broth Beef broth Flavored gelatin (Jell-O) Decaf tea and coffee Caffeinated beverages are permitted based on tolerance [facility] ice Full Liquid Diet The full liquid diet contains anything on the clear liquid diet, plus: Milk, soy, rice and almond (no chocolate) Cream of wheat, cream of rice, grits Strained creamed soups (no tomato or broccoli) Vanilla and strawberry-flavored ice cream Sherbet Blended, custard styled or whipped yogurt (plain or vanilla only) Vanilla and butterscotch pudding (no chocolate or coconut) Nutritional drinks including Ensure, Boost, [place] Instant Breakfast (no chocolate-flavored) Note: Dairy products, such as milk, ice cream and pudding, may cause diarrhea in some people just after surgery. You may need to avoid milk products. If so, substitute them with lactose-free beverages, such as soy, rice, Lactaid or almond milks. Discharge Disposition: HOME SELF-CARE
[2022-02-19 10:21] LABS: Magnesium 1.9 mg/dL (1.5-2.4)
[2022-02-19] MEDS: LACTATED RINGERS 1,000 ML IV SCH (11:23)
[2022-02-20] MEDS ORDERED: bisacodyL 5 MG TABLET.DR PO PRN (08:00)
== END 2022-02-19 12:20 | disposition home or self-care (01) ==
LOC: OR 10:18 → 6NMEDSUR 16:57 → OR 02-19 12:20
PROVIDERS: ATTEND Surgery Plastic and Reconstructive Surgery
DX: K44.9 Diaphragmatic hernia without obstruction or gangrene (principal); K56.609 Unspecified intestinal obstruction, unspecified as to partial versus complete obstruction; K31.89 Other diseases of stomach and duodenum; K21.9 Gastro-esophageal reflux disease without esophagitis; D64.9 Anemia, unspecified; E66.9 Obesity, unspecified; Z68.36 Body mass index [BMI] 36.0-36.9, adult; E03.9 Hypothyroidism, unspecified; Z98.51 Tubal ligation status; Z90.49 Acquired absence of other specified parts of digestive tract; Z98.890 Other specified postprocedural states; Z80.1 Family history of malignant neoplasm of trachea, bronchus and lung; Z79.1 Long term (current) use of non-steroidal anti-inflammatories (NSAID); Z79.890 Hormone replacement therapy; Z79.83 Long term (current) use of bisphosphonates; Z88.1 Allergy status to other antibiotic agents
CPT/HCPCS: 43282; 94640 ×2; 94760; 80051; 80053; 82310; 82565; 83735; 84100; 84520; 85025 ×2; 74019; J1100; J3411; J0690 ×2; J2405; J1650; J0131 ×2; J1885 ×2; C9113 ×2; J1170; Q9967; J1644

== ENCOUNTER → 2022-09-01 | Outpatient (CLI) | payer BC, OTHER ==
[2022-09-01 08:24] LABS: Basophils # (A) 0.1 k/uL (0-0.2); Basophils % (A) 1 %; Eosinophils # (A) 0.1 k/uL (0-0.7); Eosinophils % (A) 3 %; HCT 43.6 % (34.0-46.0); HGB 13.8 gm/dL (11.4-16.0); Hypochromasia Moderate; Lymphocytes # (A) 1.5 k/uL (1.0-4.8); Lymphocytes % (A) 33 %; MCH 31.2 pg (25.0-35.0); MCHC 31.7 g/dL (31.0-37.0); MCV 98.4 fL (80.0-100.0); Mean Platelet Volume 7.7; Monocytes # (A) 0.4 k/uL (0-1.0); Monocytes % (A) 9 %; Neutrophils # (A) 2.3 k/uL (1.3-7.7); Neutrophils % (A) 51 %; Platelet Count 348 k/uL (150-450); RBC 4.43 m/uL (3.80-5.40); RDW 13.3 % (11.5-15.5); WBC 4.5 k/uL (3.8-10.6)
[2022-09-01 14:00] LABS: ALT 22 U/L (8-44); AST 21 U/L (13-35); Albumin 4.4 d/dL (3.8-4.9); Albumin/Globulin Ratio 1.63 Ratio (1.60-3.17); Alkaline Phosphatase 78 U/L (41-126); BUN/Creat Ratio 30.75 Ratio (12.00-20.00); Blood Urea Nitrogen 24.6 mg/dL (9.0-27.0); Calcium 9.9 mg/dL (8.7-10.3); Carbon Dioxide 25.3 mmol/L (21.6-31.8); Chloride 104 mmol/L (96-109); Chol/HDL Ratio 3.34 Ratio; Globulin 2.7 d/dL (1.6-3.3); Glucose 113 mg/dL (70-110); LDL Cholesterol,Calculated 146.6 mg/dL (0.0-131.0); Potassium 4.5 mmol/L (3.5-5.5); Sodium 142 mmol/L (135-145); Total Bilirubin 0.4 mg/dL (0.3-1.2); Total Protein 7.1 d/dL (6.2-8.2)
[2022-09-02 04:45] LABS: HIV 2 AB Non-Reactive (Non-Reactive); HIV AB P24 Non-Reactive (Non-Reactive); HIV P24 AG Non-Reactive (Non-Reactive)
== END | disposition home or self-care (01) ==
LOC: LABWHC1 07:06
PROVIDERS: ATTEND Family Medicine
DX: R41.3 Other amnesia (principal)
CPT/HCPCS: 36415; 80053; 80061; 82306; 82607; 82747; 84443; 85025; 86780; 87390

== ENCOUNTER → 2022-09-23 | Outpatient (CLI) | payer BC, OTHER ==
--- NOTE | 2022-09-26 08:14 | MM ---
Reason for Exam: Screening (asymptomatic). Last mammogram was performed 1 year(s) and 2 month(s) ago. Patient History: Menarche at age 10. First Full-Term at age 27. Hysterectomy at age 44. Postmenopausal. Patient has history of breast feeding. Risk Values: Honey 5 year model risk: 1.5%. NCI Lifetime model risk: 8.5%. Prior Study Comparison: 01/06/2015 Bilateral Screening Mammogram, [facility]. 07/23/2020 Bilateral Screening Mammogram, [facility]. 08/03/2021 Bilateral MG 3D screening mammo w/cad, [facility]. Tissue Density: The breast tissue is almost entirely fat. Findings: Analyzed By CAD. Benign-appearing calcifications bilaterally. There is no suspicious group of microcalcifications or new suspicious mass in either breast. Overall Assessment: Benign, BI-RAD 2 Management: Screening Mammogram of both breasts in [address] [facility] will attempt to contact patient to return for supplemental views and ultrasound if indicated. Patient should continue monthly self-breast exams. A clinical breast exam by your physician is recommended on an annual basis. This exam should not preclude additional follow-up of suspicious palpable abnormalities. Note on Honey scores and lifetime risk: 1. A Honey score greater than 3% is considered moderate risk. If this is the case, consider specialist referral to assess eligibility for a risk reducing agent. 2. If overall lifetime risk for the development of breast cancer is 20% or higher, the patient may qualify for future screening with alternating mammogram and breast MRI. Electronically signed and approved by: Kofi Pham DO
== END | disposition home or self-care (01) ==
LOC: RADMAMWWP 07:22
PROVIDERS: ATTEND Family Medicine
DX: Z12.31 Encounter for screening mammogram for malignant neoplasm of breast (principal); Z78.0 Asymptomatic menopausal state
CPT/HCPCS: 77063; 77067

== ENCOUNTER → 2023-02-28 | Outpatient (CLI) | payer BC ==
--- NOTE | 2023-02-28 10:51 | CT ---
EXAMINATION TYPE: CT abdomen pelvis wo con DATE OF EXAM: 02/28/2023 COMPARISON: 06/28/2021 HISTORY: 57-year-old female R1 0.9, unspecified abdominal pain CT DLP: 945.1 mGycm. Automated exposure control for dose reduction was used. TECHNIQUE: Contiguous axial scanning of the abdomen and pelvis without IV contrast. Coronal and sagit raven reconstructions performed. FINDINGS: LUNG BASES: Heart upper limits of normal in size without pericardial effusion. Some strandy atelectas is at the left base. No pleural effusion. LIVER/GB: Liver borderline enlarged at 17.7 cm. There may be mild fatty infiltration. 1.1 cm cyst pos terior left liver lobe is unchanged. Gallbladder surgically absent. PANCREAS: No significant abnormality is seen. SPLEEN: No significant abnormality is seen. ADRENALS: No significant abnormality is seen. KIDNEYS: No significant abnormality is seen. BOWEL: There is a moderate to large hiatal hernia involving approximately half of the stomach in the lower chest. No dilated small bowel. Mild stool burden. Lower descending and sigmoid colonic divertic ulosis. No pericolonic inflammatory change.r LYMPH NODES: No significant abnormality is seen. OTHER: No significant abnormality is seen. PELVIS: Bladder collapsed. Uterus surgically absent. Both ovaries are visualized. Multiple pelvic phl ebolith. No abnormal fluid collection in the pelvis or pelvic lymphadenopathy. BONES: Degenerated levoconvex curvature of the lumbar spine. Moderate multilevel degenerative disc di sease. Additional hypertrophic facet arthropathy throughout. Trace grade 1 anterolisthesis L4-L5. IMPRESSION: 1. Left-sided colonic diverticulosis. No evidence for acute diverticulitis. 2. Borderline hepatomegaly at 17.7 cm with mild fatty infiltration. 3. Redemonstrated moderate to large hiatal hernia with half of the stomach in the lower chest. 4. Degenerated levoconvex curvature of the lumbar spine.
== END | disposition home or self-care (01) ==
LOC: RADCTMAIN 09:19
PROVIDERS: ATTEND Family Medicine
DX: K57.30 Diverticulosis of large intestine without perforation or abscess without bleeding (principal); K44.9 Diaphragmatic hernia without obstruction or gangrene; K76.0 Fatty (change of) liver, not elsewhere classified; M43.8X6 Other specified deforming dorsopathies, lumbar region; R16.0 Hepatomegaly, not elsewhere classified
CPT/HCPCS: 74176

== ENCOUNTER → 2023-10-13 | Outpatient (CLI) | payer OTHER ==
--- NOTE | 2023-10-17 09:11 | MM ---
Reason for Exam: Screening (asymptomatic). Last screening mammogram was performed 12 month(s) ago. Patient History: Menarche at age 10. First Full-Term at age 27. Hysterectomy at age 44. Postmenopausal. Patient has history of breast feeding. Risk Values: Honey 5 year model risk: 1.5%. NCI Lifetime model risk: 8.3%. Prior Study Comparison: 07/23/2020 Bilateral Screening Mammogram, [facility]. 08/03/2021 Bilateral MG 3D screening mammo w/cad, [facility]. 09/23/2022 Bilateral MG 3D screening mammo w/cad, [facility]. Tissue Density: There are scattered areas of fibroglandular density. Findings: Analyzed By CAD. There is no suspicious group of microcalcifications or new suspicious mass in either breast. Stable chronic nodularity. Benign appearing calcifications. Overall Assessment: Benign, BI-RAD 2 Management: Screening Mammogram of both breasts in 1 year. . Patient should continue monthly self-breast exams. A clinical breast exam by your physician is recommended on an annual basis. This exam should not preclude additional follow-up of suspicious palpable abnormalities. Note on Honey scores and lifetime risk: 1. A Honey score greater than 3% is considered moderate risk. If this is the case, consider specialist referral to assess eligibility for a risk reducing agent. 2. If overall lifetime risk for the development of breast cancer is 20% or higher, the patient may qualify for future screening with alternating mammogram and breast MRI. Electronically signed and approved by: Ab Serrato M.D. Radiologis
== END | disposition home or self-care (01) ==
LOC: RADMAMWWP 14:16
PROVIDERS: ATTEND Internal Medicine
DX: Z12.31 Encounter for screening mammogram for malignant neoplasm of breast
CPT/HCPCS: 77063; 77067